=== PATIENT | female | born 1945 | race African-American/Black ===

== ENCOUNTER 2016-02-26 13:28 | Emergency (ER) | payer OTHER ==
[2016-02-26 13:39] VITALS: BP 105/76; PULSE 107; TEMP 98.6; BMI 24.3
--- NOTE | 2016-02-26 14:24 | PDOC ---
Attending Attestation - Resident Resident Name: Cathy Edge - ED Attending Attestation I have performed the following: I have examined & evaluated the patient, The case was reviewed & discussed with the resident, I agree w/resident's findings & plan, Exceptions are as noted - HPI HPI: 02/26/16 14:47 The patient is complaining of cough, subjective fever. - Physicial Exam PE: 02/26/16 14:47 Vitals noted - Medical Decision Making 02/26/16 14:47 The patient is well appearing and in no acute distress 02/26/16 15:22 Chest x-ray report noted: No acute cardiopulmonary disease Symptoms much improved after DuoNeb Clinical impression: Bronchitis Bronchospasm I discussed the physical exam findings, ancillary test results and final diagnoses with the patient. I answered all of the patient's questions. The patient was satisfied with the care received and felt comfortable with the discharge plan and treatment plan. The patient will call their primary care physician within 24 hours to arrange follow-up and will return to the Emergency Department with any new, persistent or worsening symptoms.
--- NOTE | 2016-02-26 14:47 | PDOC ---
[id number],Michael - Last Filed: 02/26/16 17:00> - General Chief Complaint: Cold Symptoms Stated Complaint: BAD COUGH Time Seen by Provider: 02/26/16 14:24 Past History - Past Medical History CVA: Yes Psychiatric Problems: Yes (depression) - Immunization History Immunization Up to Date: Yes - Psycho/Social/Smoking Cessation Hx Anxiety: Yes Suicidal Ideation: No Smoking Status: No Smoking History: Former smoker Have you smoked in the past 12 months: No Number of Cigarettes Smoked Daily: 0 If you are a former smoker, when did you quit?: 2008 Information on smoking cessation initiated: No Hx Alcohol Use: No Drug/Substance Use Hx: No (past) Substance Use Type: Alcohol <Cathy Edge - Last Filed: 02/26/16 14:47> <Tanja Stern - Last Filed: 02/26/16 16:09> <Chase Siegel - Last Filed: 02/26/16 17:00> - Past Medical History Allergies/Adverse Reactions: Allergies Allergy/AdvReac Type Severity Reaction Status Date / Time Penicillins Allergy Swelling Verified 02/26/16 13:34 Home Medications: Ambulatory Orders Sertraline HCl [Zoloft -] 100 mg PO DAILY 10/09/12 Tramadol HCl [Ultram] 50 mg PO TID 05/27/14 Apremilast [Otezla] 50 mg PO BID 11/15/14 Aspirin [ASA -] 81 mg PO DAILY 11/15/14 Albuterol Sulfate Inhaler - [Ventolin HFA Inhaler -] 1 - 2 inh PO QID #1 inhaler 11/17/14 *Physical Exam - Vital Signs Last Vital Signs Temp Pulse Resp BP Pulse Ox 98.6 F 107 H 20 105/76 98 02/26/16 13:35 02/26/16 13:35 02/26/16 13:35 02/26/16 13:35 02/26/16 13:35 <Cathy Edge - Last Filed: 02/26/16 14:47> - Vital Signs Last Vital Signs Temp Pulse Resp BP Pulse Ox 98.6 F 107 H 20 105/76 98 02/26/16 13:35 02/26/16 13:35 02/26/16 13:35 02/26/16 13:35 02/26/16 13:35 <[email or web address] - Last Filed: 02/26/16 16:09> - Vital Signs Last Vital Signs Temp Pulse Resp BP Pulse Ox 98.6 F 107 H 20 105/76 98 02/26/16 13:35 02/26/16 13:35 02/26/16 13:35 02/26/16 13:35 02/26/16 13:35 <Chase Siegel - Last Filed: 02/26/16 17:00> ED Treatment Course - LABORATORY CBC & Chemistry Diagram: 02/26/16 14:07 02/26/16 14:07 - RADIOLOGY Radiograph Interpretation: 02/26/16 16:08 Chest X-ray as reviewed by Dr. Maki reports no active disease in chest. - Medications Given in the ED: ED Medications Discontinued Medications Generic Name Dose Route Start Last Admin Trade Name Freq PRN Reason Stop Dose Admin Albuterol/Ipratropium 3 amp 02/26/16 14:50 02/26/16 15:51 Duoneb - NEB 02/26/16 14:51 3 amp ONCE ONE Administration Prednisone 60 mg 02/26/16 14:51 02/26/16 15:51 Deltasone - PO 02/26/16 14:52 60 mg ONCE ONE Administration <Tanja Stern - Last Filed: 02/26/16 16:09> - LABORATORY CBC & Chemistry Diagram: 02/26/16 14:07 02/26/16 14:07 - ADDITIONAL ORDERS Additional order review: 02/26/16 14:07 RBC 4.72 MCV 65.6 L MCHC 30.6 L RDW 20.9 H D MPV 9.3 Neutrophils % 36.5 L D Lymphocytes % 50.6 H Monocytes % 11.3 H Eosinophils % 1.0 Basophils % 0.6 - Medications Given in the ED: ED Medications Discontinued Medications Generic Name Dose Route Start Last Admin Trade Name Freq PRN Reason Stop Dose Admin Albuterol/Ipratropium 3 amp 02/26/16 14:50 02/26/16 15:51 Duoneb - NEB 02/26/16 14:51 3 amp ONCE ONE Administration Prednisone 60 mg 02/26/16 14:51 02/26/16 15:51 Deltasone - PO 02/26/16 14:52 60 mg ONCE ONE Administration <Chase Siegel - Last Filed: 02/26/16 17:00> *DC/Admit/Observation/Transfer <Cathy Edge - Last Filed: 02/26/16 14:47> - Attestations Scribe Attestion: 02/26/16 16:09 Documentation prepared by Tanja Stern, acting as medical coding technician for Chase Siegel MD/DO. <Tanja Stern - Last Filed: 02/26/16 16:09> <Chase Siegel - Last Filed: 02/26/16 17:00> Diagnosis at time of Disposition: Bronchitis - Referrals Referrals: Sebastian Puckett MD, MD [Primary Care Provider] -
[2016-02-26] MEDS ORDERED: ALBUTEROL SO4 2.5/IPRATROPIUM 0.5 INH SOL 3 ML VIAL.NEB. NEB ONE (14:50)
[2016-02-26] MEDS ORDERED: predniSONE 20 MG TABLET (UD) PO ONE (14:51)
[2016-02-26] MEDS ORDERED: SODIUM CHLORIDE 1,000 ML IV STA (14:51)
[2016-02-26] MEDS ORDERED: ALBUTEROL SO4 0.083% IH SOL 2.5 MG/3 ML VIAL.NEB. NEB ONE (15:48)
[2016-02-26] MEDS ORDERED: predniSONE 20 MG TABLET (UD) ONE (16:03)
[2016-02-26 16:10] LABS: BASOPHIL 0.6 % (0-2.0); MCH 20.1 pg (25.7-33.7); MCHC 30.6 g/dl (32.0-36.0); MEAN CELL VOLUME 65.6 fl (80-96); MEAN PLT VOLUME 9.3 fl (7.5-11.1); NEUTROPHILS 36.5 % (42.8-82.8); PLATELET COUNT 303 K/MM3 (134-434); RDW 20.9 % (11.6-15.6); WHITE BLOOD COUNT 7.6 K/mm3 (4.0-10.0)
[2016-02-26] MEDS ORDERED: OXYCODONE/APAP 5/325MG COMBO TABLET PO ONE (16:44)
[2016-02-26 17:02] LABS: ALBUMIN 3.8 g/dl (3.4-5.0); CALCIUM 9.8 mg/dL (8.5-10.1)
[2016-02-26 17:03] LABS: BILIRUBIN,TOTAL 0.5 mg/dL (0.2-1.0); TOT PROT 7.9 g/dl (6.4-8.2)
[2016-02-26 17:04] LABS: ANISOCYTOSIS 2+; HYPOCHROMIA 3+; MICROCYTOSIS 1+; PLATELET COMMENT2 NO CLUMPING NOTED; PLATELET ESTIMATE ADEQUATE (NORMAL); POLYCHROMASIA FEW; TARGET CELLS 1+
[2016-02-26] MEDS ORDERED: OXYCODONE/APAP 5/325MG COMBO TABLET ONE (17:15)
== END 2016-02-26 19:25 | disposition home or self-care (01) ==
LOC: JER 13:28
PROC: 3E0F7GC Introduction of Other Therapeutic Substance into Respiratory Tract, Via Natural or Artificial Opening (ICD-10-PCS; principal; 2016-02-26)
DX: J20.9 Acute bronchitis, unspecified (principal)
CPT/HCPCS: 36415; 71010-TC; 80053; 85025; 99283-25

== ENCOUNTER 2016-03-01 15:43 | Emergency (ER) | payer OTHER ==
[2016-03-01 15:51] VITALS: BMI 24.3
[2016-03-01] MEDS ORDERED: ALBUTEROL SO4 0.083% IH SOL 2.5 MG/3 ML VIAL.NEB. NEB ONE ×2 (17:42→18:52)
[2016-03-01 17:55] LABS: BASOPHIL 0.6 % (0-2.0); EOSINOPHIL 0.7 % (0-4.5); MCHC 29.8 g/dl (32.0-36.0); MEAN CELL VOLUME 66.5 fl (80-96); MEAN PLT VOLUME 9.7 fl (7.5-11.1); NEUTROPHILS 50.1 % (42.8-82.8); PLATELET COUNT 373 K/MM3 (134-434); RDW 20.8 % (11.6-15.6); WHITE BLOOD COUNT 12.1 K/mm3 (4.0-10.0)
[2016-03-01 17:57] LABS: URINE APPEARANCE CLEAR; URINE BILIRUBIN NEGATIVE (NEGATIVE); URINE BLOOD NEGATIVE (NEGATIVE); URINE COLOR YELLOW; URINE GLUCOSE (UA) NEGATIVE (NEGATIVE); URINE KETONE NEGATIVE (NEGATIVE); URINE LEUK ESTERASE NEGATIVE (NEGATIVE); URINE NITRITE NEGATIVE (NEGATIVE); URINE PROTEIN NEGATIVE (NEGATIVE); URINE UROBILINOGEN NEGATIVE E.U./dl (0.2-1.0)
[2016-03-01 17:59] LABS: MCH 19.9 pg (25.7-33.7)
[2016-03-01 18:07] LABS: INR 1.14 (0.82-1.09); PROTHROMBIN TIME (PATIENT) 12.6 SEC (9.98-11.88)
[2016-03-01 18:10] LABS: ACTIVATED PTT 29.9 SECONDS (26.9-34.4)
[2016-03-01 18:27] LABS: PLATELET ESTIMATE ADEQUATE (NORMAL)
[2016-03-01 18:28] LABS: ANISOCYTOSIS 2+; HYPOCHROMIA 3+; MICROCYTOSIS 1+; PLATELET COMMENT2 NO CLOTTING DETECTED; POLYCHROMASIA 1+; TARGET CELLS 1+
[2016-03-01 18:29] LABS: ALBUMIN 3.6 g/dl (3.4-5.0); ANION GAP 8 (8-16); CALCIUM 9.3 mg/dL (8.5-10.1); CO2 27 mmol/L (21-32); GLUCOSE,RANDOM 77 mg/dL (74-106); SGPT/ALT 16 U/L (12-78)
[2016-03-01 18:34] LABS: ALK PHOS 115 U/L (45-117); BILIRUBIN,TOTAL 0.4 mg/dL (0.2-1.0); CREATININE 0.9 mg/dL (0.55-1.02); SGOT/AST 12 U/L (15-37); TOT PROT 7.5 g/dl (6.4-8.2); TROPONIN I < 0.02 ng/ml (0.00-0.05)
--- NOTE | 2016-03-01 18:38 | PDOC ---
History of Present Illness - General History Source: Patient, Old Records Exam Limitations: No Limitations - History of Present Illness Initial Comments: 03/01/16 18:53 The patient is a 70 year old female, with a significant past medical history of anemia, who presents to the emergency department with a persistent cough and associated wheezing. The patient reports that she has been sick since 02/20/2016 and most recently visited this ED on 02/26/2016 with similar symptoms. On 2016 while in the ED, the patient had a chest x-ray and bloodwork done, with unremarkable findings. Since then, she has completed a course of doxycycline and was started on prednisone. She returns to the ED today because her cough persists and she doesn't feel any better despite taking her medications. The patient denies fever, chills or chest pain. Allergies: Penicillins Past Surgical History: None reported. Social History: Former smoker (quit in 2008). Reports past alcohol and drug use . PCP: Dr. Puckett <Renee Moore - Last Filed: 03/01/16 19:05> - General History Source: Patient Exam Limitations: No Limitations <Fracisco Mccoy - Last Filed: 03/01/16 19:21> - General Chief Complaint: Shortness of Breath Stated Complaint: SOB, FLU SYMPTONS Time Seen by Provider: 03/01/16 17:25 Past History <Renee Moore - Last Filed: 03/01/16 19:05> - Past Medical History CVA: Yes Psychiatric Problems: Yes (depression) - Immunization History Immunization Up to Date: Yes - Psycho/Social/Smoking Cessation Hx Anxiety: Yes Suicidal Ideation: No Smoking Status: No Smoking History: Former smoker Have you smoked in the past 12 months: No Number of Cigarettes Smoked Daily: 0 If you are a former smoker, when did you quit?: 2008 Information on smoking cessation initiated: No Hx Alcohol Use: Yes (hx of alcohol) Drug/Substance Use Hx: Yes (hx of stacey,crack) Substance Use Type: Alcohol <Fracisco Mccoy - Last Filed: 03/01/16 19:21> - Past Medical History Allergies/Adverse Reactions: Allergies Allergy/AdvReac Type Severity Reaction Status Date / Time Penicillins Allergy Swelling Verified 02/26/16 13:34 Home Medications: Ambulatory Orders Sertraline HCl [Zoloft -] 100 mg PO DAILY 08/26/13 Tramadol HCl [Ultram] 50 mg PO TID 05/27/14 Apremilast [Otezla] 50 mg PO BID 11/15/14 Aspirin [ASA -] 81 mg PO DAILY 11/15/14 Albuterol Sulfate Inhaler - [Ventolin HFA Inhaler -] 1 - 2 inh PO QID #1 inhaler 11/17/14 Prednisone [Deltasone -] 40 mg PO DAILY #4 tablet 02/26/16 Albuterol Sulfate Inhaler - [Ventolin HFA Inhaler -] 1 - 2 inh PO Q4H PRN #1 inhaler 03/01/16 Review of Systems - Review of Systems Able to Perform ROS?: Yes Comments:: 03/01/16 18:49 GENERAL/CONSTITUTIONAL: No fever or chills. No weakness. HEAD, EYES, EARS, NOSE AND THROAT: No change in vision. No ear pain or discharge. No sore throat. CARDIOVASCULAR: No chest pain or shortness of breath. RESPIRATORY: +Cough, wheezing. No hemoptysis. GASTROINTESTINAL: No nausea, vomiting, diarrhea or constipation. GENITOURINARY: No dysuria, frequency, or change in urination. MUSCULOSKELETAL: No joint or muscle swelling or pain. No neck or back pain. SKIN: No rash. NEUROLOGIC: No headache, vertigo, loss of consciousness, or change in strength/ sensation. ENDOCRINE: No increased thirst. No abnormal weight change. HEMATOLOGIC/LYMPHATIC: No anemia, easy bleeding, or history of blood clots. ALLERGIC/IMMUNOLOGIC: No hives or skin allergy. <Renee Moore - Last Filed: 03/01/16 19:05> *Physical Exam - Vital Signs Last Vital Signs Temp Pulse Resp BP Pulse Ox 98.5 F 81 18 119/80 100 03/01/16 15:47 03/01/16 15:47 03/01/16 15:47 03/01/16 15:47 03/01/16 16:40 - Physical Exam Comments: 03/01/16 18:43 GENERAL: Awake, alert, and fully oriented, in no acute distress. HEAD: No signs of trauma. EYES: PERRLA, EOMI, sclera anicteric, conjunctiva clear. ENT: Auricles normal inspection, hearing grossly normal, nares patent, oropharynx clear without exudates. Moist mucosa. NECK: Normal ROM, supple, no lymphadenopathy, JVD, or masses. LUNGS: Frequent coughing with intermittent wheezing. Breath sounds equal. No crackles. HEART: Regular rate and rhythm, normal S1 and S2, no murmurs, rubs or gallops. ABDOMEN: Soft, nontender, normoactive bowel sounds. No guarding, no rebound. No masses. EXTREMITIES: Normal range of motion, no edema. No clubbing or cyanosis. No cords , erythema, or tenderness. NEUROLOGICAL: Cranial nerves II through XII grossly intact. Normal speech, normal gait. SKIN: Warm, dry, normal turgor, no rashes or lesions noted. <CrossRenee Posada - Last Filed: 03/01/16 19:05> - Vital Signs Last Vital Signs Temp Pulse Resp BP Pulse Ox 98.5 F 81 18 119/80 100 03/01/16 15:47 03/01/16 15:47 03/01/16 15:47 03/01/16 15:47 03/01/16 16:40 <Fracisco Mccoy - Last Filed: 03/01/16 19:21> Heart Score/ECG Review #1 ECG reviewed & interpreted by me at: 17:50 03/01/16 18:38 NSR 70, left axis deviation, no std/fernanda, Q wave V1, QTC 440 msec <Fracisco Mccoy - Last Filed: 03/01/16 19:21> ED Treatment Course - LABORATORY CBC & Chemistry Diagram: 03/01/16 17:45 03/01/16 17:45 - ADDITIONAL ORDERS Additional order review: Laboratory Results 03/01/16 03/01/16 03/01/16 17:45 17:45 17:45 INR 1.14 PTT (Actin FS) 29.9 Sodium 139 Potassium 4.0 Chloride 104 Carbon Dioxide 27 Anion Gap 8 BUN 13 Creatinine 0.9 Creat Clearance w eGFR > 60 Random Glucose 77 Calcium 9.3 Total Bilirubin 0.4 AST 12 L D ALT 16 Alkaline Phosphatase 115 Creatine Kinase 68 Troponin I < 0.02 B-Natriuretic Peptide 77.21 Total Protein 7.5 Albumin 3.6 Urine Color Yellow Urine Appearance Clear Urine pH 5.0 Ur Specific [place] 1.015 Urine Protein Negative Urine Glucose (UA) Negative Urine Ketones Negative Urine Blood Negative Urine Nitrite Negative Urine Bilirubin Negative Urine Urobilinogen Negative Ur Leukocyte Esterase Negative 03/01/16 17:45 RBC 4.50 MCV 66.5 L MCHC 29.8 L RDW 20.8 H MPV 9.7 Neutrophils % 50.1 D Lymphocytes % 41.0 H Monocytes % 7.6 Eosinophils % 0.7 Basophils % 0.6 - Medications Given in the ED: ED Medications Discontinued Medications Generic Name Dose Route Start Last Admin Trade Name Freq PRN Reason Stop Dose Admin Albuterol Sulfate 1 amp 03/01/16 17:42 03/01/16 18:17 Ventolin 0.083% Nebulizer Soln - NEB 03/01/16 17:43 1 amp ONCE ONE Administration <Renee Moore - Last Filed: 03/01/16 19:05> - LABORATORY CBC & Chemistry Diagram: 03/01/16 17:45 03/01/16 17:45 - ADDITIONAL ORDERS Additional order review: Laboratory Results 03/01/16 03/01/16 17:45 17:45 INR 1.14 PTT (Actin FS) 29.9 Urine Color Yellow Urine Appearance Clear Urine pH 5.0 Ur Specific [place] 1.015 Urine Protein Negative Urine Glucose (UA) Negative Urine Ketones Negative Urine Blood Negative Urine Nitrite Negative Urine Bilirubin Negative Urine Urobilinogen Negative Ur Leukocyte Esterase Negative 03/01/16 17:45 RBC 4.50 MCV 66.5 L MCHC 29.8 L RDW 20.8 H MPV 9.7 Neutrophils % 50.1 D Lymphocytes % 41.0 H Monocytes % 7.6 Eosinophils % 0.7 Basophils % 0.6 - RADIOLOGY Radiology Studies Ordered: Category Date Time Status CHEST X-RAY PORTABLE* [RAD] Stat Radiology 03/01/16 17:41 Ordered - Medications Given in the ED: ED Medications Discontinued Medications Generic Name Dose Route Start Last Admin Trade Name Freq PRN Reason Stop Dose Admin Albuterol Sulfate 1 amp 03/01/16 17:42 03/01/16 18:17 Ventolin 0.083% Nebulizer Soln - NEB 03/01/16 17:43 1 amp ONCE ONE Administration <Fracisco Mccoy - Last Filed: 03/01/16 19:21> Medical Decision Making - Medical Decision Making 03/01/16 18:54 Called patients PCP, Dr. Puckett at at 18:50. Awaiting callback. <Renee Moore - Last Filed: 03/01/16 19:05> - Medical Decision Making 03/01/16 18:36 A portion of this note was documented by scribe services under my direction. I have reviewed the details of the note, within reason, and agree with the documentation with the following case summary and management plan written by me. Patient treated in the ED. Nursing notes are reviewed and incorporated into the medical decision-making. Vital signs reviewed. Peripheral IV access obtained by the nurse, laboratory studies are drawn and sent, reviewed and interpreted by myself. Vital Signs Temp Pulse Resp BP Pulse Ox 98.5 F 81 18 119/80 100 03/01/16 15:47 03/01/16 15:47 03/01/16 15:47 03/01/16 15:47 03/01/16 16:40 70-year-old female with history of anemia presents to the emergency department for persistent upper respiratory cough. Patient reports that the coughing has been progressively worsening despite owing to her primary care physician as well as visiting the emergency department for days ago. The patient had completed a course of doxycycline. Has not reported feeling better. 4 days ago, patient is a the ED and had a chest x-ray and blood work performed. It demonstrated no acute findings. She was started on prednisone and completed but reports no improvement of symptoms. Patient reports intermittent wheezing and coughing despite taking the medications. Denies fevers or chills. Denies chest pain. The patient is personally coughing despite outpatient treatment. We'll initiate adult sepsis protocol and rule out pneumonia. We'll send influenza swab. We'll obtain a chest x-ray and labs. 03/01/16 19:00 CBC, BMP 03/01/16 17:45 03/01/16 17:45 CMP Sodium 139 mmol/L (136-145) 03/01/16 17:45 Potassium 4.0 mmol/L (3.5-5.1) 03/01/16 17:45 Chloride 104 mmol/L (98-107) 03/01/16 17:45 Carbon Dioxide 27 mmol/L (21-32) 03/01/16 17:45 Anion Gap 8 (8-16) 03/01/16 17:45 BUN 13 mg/dL (7-18) 03/01/16 17:45 Creatinine 0.9 mg/dL (0.55-1.02) 03/01/16 17:45 Creat Clearance w eGFR > 60 (>60) 03/01/16 17:45 Random Glucose 77 mg/dL (74-106) 03/01/16 17:45 Calcium 9.3 mg/dL (8.5-10.1) 03/01/16 17:45 Total Bilirubin 0.4 mg/dL (0.2-1.0) 03/01/16 17:45 AST 12 U/L (15-37) L D 03/01/16 17:45 ALT 16 U/L (12-78) 03/01/16 17:45 Alkaline Phosphatase 115 U/L (45-117) 03/01/16 17:45 Creatine Kinase 68 IU/L (26-192) 03/01/16 17:45 Troponin I < 0.02 ng/ml (0.00-0.05) 03/01/16 17:45 B-Natriuretic Peptide 77.21 pg/ml (5-125) 03/01/16 17:45 Total Protein 7.5 g/dl (6.4-8.2) 03/01/16 17:45 Albumin 3.6 g/dl (3.4-5.0) 03/01/16 17:45 Urine Test Results Urine Color Yellow 03/01/16 17:45 Urine Appearance Clear 03/01/16 17:45 Urine pH 5.0 (5.0-8.0) 03/01/16 17:45 Ur Specific [place] 1.015 (1.001-1.035) 03/01/16 17:45 Urine Protein Negative (NEGATIVE) 03/01/16 17:45 Urine Glucose (UA) Negative (NEGATIVE) 03/01/16 17:45 Urine Ketones Negative (NEGATIVE) 03/01/16 17:45 Urine Blood Negative (NEGATIVE) 03/01/16 17:45 Urine Nitrite Negative (NEGATIVE) 03/01/16 17:45 Urine Bilirubin Negative (NEGATIVE) 03/01/16 17:45 Ur Leukocyte Esterase Negative (NEGATIVE) 03/01/16 17:45 Labs reviewed. Hgb stable. WBC ~12, likely secondary to steroids. The patient does not appear toxic and overall appears well. I suspect that this is likely viral syndrome which may explain why the steroids and doxycycline did not work. I had explained the results to the patient but the patient is very anxious and nervous about being discharged. She requests that I talk to DR. Puckett prior to dispo. Dr. Puckett was paged. 03/01/16 19:[address] Puckett. He agrees that the patient can follow up with him as an outpatient. I discussed the physical exam findings, ancillary test results and final diagnoses with the patient. I answered all of the patient's questions. The patient was satisfied with the care received and felt comfortable with the discharge plan and treatment plan. The patient will call their primary care physician within 24 hours to arrange follow-up and will return to the Emergency Department with any new, persistant or worsening symptoms. <Fracisco Mccoy - Last Filed: 03/01/16 19:21> *DC/Admit/Observation/Transfer - Attestations Scribe Attestion: 03/01/16 18:43 Documentation prepared by Renee Moore, acting as medical office technology instructor for Fracisco Mccoy MD. <Renee Moore - Last Filed: 03/01/16 19:05> - Discharge Dispostion Admit: No <Fracisco Mccoy - Last Filed: 03/01/16 19:21> Diagnosis at time of Disposition: Bronchitis - Discharge Dispostion Disposition: HOME Condition at time of disposition: Stable - Prescriptions Prescriptions: Albuterol Sulfate Inhaler - [Ventolin HFA Inhaler -] 1 - 2 inh PO Q4H PRN #1 inhaler PRN Reason: Cough - Referrals Referrals: Sebastian Puckett MD, MD [Primary Care Provider] - - Patient Instructions Printed Discharge Instructions: DI for Acute Bronchitis, DI for Chronic Bronchitis Additional Instructions: Your workup demonstrates no acute findings. This type of bronchitis may take another week or two before it resolves. The coughing can be persistent and bothersome. However, at this time, please use 2 puffs of albuterol every 4 hours as needed for wheezing/coughing. Follow up with DR. Puckett.
[2016-03-01 19:14] VITALS: BP 120/71; PULSE 80; TEMP 98.3
--- NOTE | 2016-03-02 16:23 | EKG ---
Test Reason : Blood Pressure : / mmHG Vent. Rate : 070 BPM Atrial Rate : 070 BPM P-R Int : 180 ms QRS Dur : 076 ms QT Int : 408 ms P-R-T Axes : 060 -36 048 degrees QTc Int : 440 ms NORMAL SINUS RHYTHM LEFT AXIS DEVIATION MINIMAL VOLTAGE CRITERIA FOR LVH, MAY BE NORMAL VARIANT SEPTAL INFARCT , AGE UNDETERMINED ABNORMAL ECG WHEN COMPARED WITH ECG OF 17-NOV-2014 09:27, NO SIGNIFICANT CHANGE WAS FOUND Confirmed by DEV VELASQUEZ MD ([id number]) on 03/02/2016 4:22:50 PM Referred By: Confirmed By:DEV VELASQUEZ MD
== END 2016-03-01 19:32 | disposition home or self-care (01) ==
LOC: JER 15:43
PROC: 3E0F7GC Introduction of Other Therapeutic Substance into Respiratory Tract, Via Natural or Artificial Opening (ICD-10-PCS; principal; 2016-03-01)
DX: J20.9 Acute bronchitis, unspecified (principal); F32.9 Major depressive disorder, single episode, unspecified; Z86.73 Personal history of transient ischemic attack (TIA), and cerebral infarction without residual deficits
CPT/HCPCS: 36415; 71010-TC; 80053; 81003; 82550; 83605; 83880; 84484; 85025; 85610; 85730; 87040; 87086; 87804; 93005; 93010; 94640; 99283-25

== ENCOUNTER 2017-03-17 16:20 | Emergency (ER) | payer OTHER ==
--- NOTE | 2017-03-17 16:21 | PDOC ---
Rapid Medical Evaluation Medical Evaluation: Allergies Allergy/AdvReac Type Severity Reaction Status Date / Time Penicillins Allergy Swelling Verified 02/26/16 13:34 03/17/17 16:22 71 year old female with history of CVA, anxiety/depression, anemia, chronic back pain, former smoker, former crack/cocaine user who presents with nasal congestion/dry cough, and chest tightness x 3 days, worse since morning. Symptoms reminiscent of when she had pneumonia last year. V/s unremarkable. EKG CXR Cardiac labs Influenza swab -To Main ED for further evaluation
[2017-03-17 16:27] VITALS: BMI 24.6
[2017-03-17 17:04] LABS: BASO % 0.9 % (0-2.0); EOS % 1.3 % (0-4.5); HEMOGLOBIN 8.9 GM/dL (10.7-15.3); LYMPH % 37.2 % (8-40); MCH 21.6 pg (25.7-33.7); MCHC 31.7 g/dl (32.0-36.0); MEAN CELL VOLUME 68.2 fl (80-96); MONO % 8.4 % (3.8-10.2); NEUT % 52.2 % (42.8-82.8); PLATELET COUNT 392 K/MM3 (134-434); RBC 4.11 M/mm3 (3.60-5.2); RDW 18.8 % (11.6-15.6)
[2017-03-17 17:07] LABS: URINE APPEARANCE CLEAR; URINE BILIRUBIN NEGATIVE (NEGATIVE); URINE BLOOD NEGATIVE (NEGATIVE); URINE COLOR YELLOW; URINE GLUCOSE (UA) NEGATIVE (NEGATIVE); URINE KETONE NEGATIVE (NEGATIVE); URINE LEUK ESTERASE TRACE (NEGATIVE); URINE NITRITE NEGATIVE (NEGATIVE); URINE PROTEIN NEGATIVE (NEGATIVE)
[2017-03-17 17:15] LABS: EPI CELLS RARE /HPF (FEW); URINE MUCUS RARE
[2017-03-17 17:34] LABS: ALBUMIN 3.7 g/dl (3.4-5.0); ANION GAP 6 (8-16); BLOOD UREA NITROGEN 12 mg/dL (7-18); CALCIUM 8.9 mg/dL (8.5-10.1); CHLORIDE 106 mmol/L (98-107); CO2 26 mmol/L (21-32); CREATININE 0.8 mg/dL (0.55-1.02); GLUCOSE,RANDOM 81 mg/dL (74-106); SGOT/AST 13 U/L (15-37); SGPT/ALT 19 U/L (12-78); SODIUM 138 mmol/L (136-145)
[2017-03-17 17:38] LABS: ALK PHOS 118 U/L (45-117); BILIRUBIN,TOTAL 0.6 mg/dL (0.2-1.0); N-TERMINAL BNP 74.28 pg/ml (5-125); TOT PROT 7.6 g/dl (6.4-8.2)
--- NOTE | 2017-03-17 19:32 | PDOC ---
History of Present Illness - General Chief Complaint: Shortness of Breath Stated Complaint: COLD SYMPTOMS Time Seen by Provider: 03/17/17 19:26 History Source: Patient Exam Limitations: No Limitations - History of Present Illness Initial Comments: 03/17/17 22:36 Patient is a 71-year-old female past medical history of anemia, anxiety, back pain, who presents to the emergency department today complaining of chest tightness and shortness of breath. Patient states she has been feeling this way for approximately 3 days. She states the last time she felt this way she was diagnosed with pneumonia. She admits to a cough and shortness of breath on exertion. Denies fevers, chills, sore throat, body aches, chest pain, palpitations, nausea, vomiting and diarrhea. Past History - Travel Traveled outside of the country in the last 30 days: No Close contact w/someone who was outside of country & ill: No - Past Medical History Allergies/Adverse Reactions: Allergies Allergy/AdvReac Type Severity Reaction Status Date / Time Penicillins Allergy Swelling Verified 03/17/17 16:22 Home Medications: Ambulatory Orders Sertraline HCl [Zoloft -] 100 mg PO DAILY 10/09/12 Apremilast [Otezla] 50 mg PO BID 11/15/14 Aspirin [ASA -] 81 mg PO DAILY 11/15/14 Esomeprazole Magnesium 40 mg PO DAILY 03/17/17 Oxycodone HCl [Oxycodone HCl ER] 10 mg PO DAILY 03/17/17 CVA: Yes COPD: No Psychiatric Problems: Yes (depression) - Immunization History Immunization Up to Date: Yes - Suicide/Smoking/Psychosocial Hx Smoking Status: No Smoking History: Former smoker Have you smoked in the past 12 months: No Number of Cigarettes Smoked Daily: 0 If you are a former smoker, when did you quit?: 2008 Information on smoking cessation initiated: No Hx Alcohol Use: Yes (hx of alcohol) Drug/Substance Use Hx: Yes (hx of stacey,crack) Substance Use Type: Alcohol Review of Systems - Review of Systems Able to Perform ROS?: Yes Comments:: 03/17/17 22:38 CONSTITUTIONAL: Absent: fever, chills, diaphoresis, generalized weakness, malaise, loss of appetite HEENT: Absent: rhinorrhea, nasal congestion, throat pain, throat swelling, difficulty swallowing, mouth swelling, ear pain, eye pain, visual Changes CARDIOVASCULAR: Absent: chest pain, loss of consciousness, palpitations, irregular heart rate, peripheral edema RESPIRATORY: Present: cough, shortness of breath, dyspnea with exertion Absent: orthopnea, wheezing, stridor, hemoptysis GASTROINTESTINAL: Absent: abdominal pain, abdominal distension, nausea, vomiting, diarrhea, constipation, melena, hematochezia GENITOURINARY: Absent: dysuria, frequency, urgency, hesitancy, hematuria, flank pain, genital pain MUSCULOSKELETAL: Present: back pain Absent: myalgia, arthralgia, joint swelling SKIN: Absent: rash, itching, pallor HEMATOLOGIC/IMMUNOLOGIC: Absent: easy bleeding, easy bruising, lymphadenopathy, frequent infections ENDOCRINE: Absent: unexplained weight gain, unexplained weight loss, heat intolerance, cold intolerance NEUROLOGIC: Absent: headache, focal weakness or paresthesias, dizziness, unsteady gait, seizure, mental status changes, bladder or bowel incontinence PSYCHIATRIC: Absent: anxiety, depression, suicidal or homicidal ideation, hallucinations. Is the patient limited [place]ian proficient: No *Physical Exam - Vital Signs Last Vital Signs Temp Pulse Resp BP Pulse Ox 98.2 F 85 18 141/94 100 03/17/17 16:23 03/17/17 16:23 03/17/17 16:23 03/17/17 16:23 03/17/17 16:23 - Physical Exam Comments: 03/17/17 22:38 GENERAL: Well developed, well nourished. Awake and alertx3. No acute distress. Pt speaking in full sentences, however; gets winding during conversation while sitting. HEENT: Normocephalic, atraumatic. PERRLA, EOMI. No conjunctival pallor. Sclera are non- icteric. Moist mucous membranes. Oropharynx is clear. NECK: Supple. Full ROM. No JVD. Carotid pulses 2+ and symmetric, without bruits. No thyromegaly. No lymphadenopathy. CARDIOVASCULAR: Regular rate and rhythm. No murmurs, rubs, or gallops. Distal pulses are 2+ and symmetric. PULMONARY: No evidence of respiratory distress. Lungs clear to auscultation bilaterally. No wheezing, rales or rhonchi. ABDOMINAL: Soft. Non-tender. Non-distended. No rebound or guarding. No organomegaly. Normoactive bowel sounds. MUSCULOSKELETAL Normal range of motion at all joints. No bony deformities or tenderness. No CVA tenderness. EXTREMITIES: No cyanosis. No clubbing. No edema. No calf tenderness. SKIN: Warm and dry. Normal capillary refill. No rashes. No jaundice. NEUROLOGICAL: Alert, awake, appropriate. Cranial nerves 2-12 intact. No deficits to light touch and temperature in face, upper extremities and lower extremities. No motor deficits in the in face, upper extremities and lower extremities. Normoreflexic in the upper and lower extremities. Normal speech. Toes are down- going bilaterally. Gait is normal without ataxia. PSYCHIATRIC: Cooperative. Good eye contact. Appropriate mood and affect. ED Treatment Course - LABORATORY CBC & Chemistry Diagram: 03/17/17 16:51 03/17/17 16:51 - ADDITIONAL ORDERS Additional order review: Laboratory Results 03/17/17 03/17/17 03/17/17 16:58 16:51 16:51 PT with INR Cancelled INR Cancelled Sodium 138 Potassium 4.0 Chloride 106 Carbon Dioxide 26 Anion Gap 6 L BUN 12 Creatinine 0.8 Creat Clearance w eGFR > 60 Random Glucose 81 Calcium 8.9 Total Bilirubin 0.6 D AST 13 L ALT 19 Alkaline Phosphatase 118 H Creatine Kinase 153 Creatine Kinase Index 0.9 CK-MB (CK-2) 1.451 Troponin I < 0.02 B-Natriuretic Peptide 74.28 Total Protein 7.6 Albumin 3.7 Urine Color Yellow Urine Appearance Clear Urine pH 5.0 Ur Specific [place] 1.021 Urine Protein Negative Urine Glucose (UA) Negative Urine Ketones Negative Urine Blood Negative Urine Nitrite Negative Urine Bilirubin Negative Urine Urobilinogen 2.0 H Ur Leukocyte Esterase Trace Urine WBC (Auto) 1 Urine RBC (Auto) 1 Ur Epithelial Cells Rare Urine Mucus Rare 03/17/17 17:22 Influenza Types A,B Antigen (KEITH) - Final Nasopharyngeal Swab - Final 03/17/17 16:51 RBC 4.11 MCV 68.2 L MCHC 31.7 L RDW 18.8 H D MPV 9.0 Neutrophils % 52.2 Lymphocytes % 37.2 Monocytes % 8.4 Eosinophils % 1.3 Basophils % 0.9 Medical Decision Making - Medical Decision Making 03/17/17 23:01 Patient is a 71-year-old female past medical history of anemia, anxiety, back pain, who presents to the emergency department today with two days of chest tightness and shortness of breath.Given past medical history of pneumonia, will obtain chest x-ray basic labs and EKG at this time. We'll also obtain cardiac labs to rule out CHF. We'll give one DuoNeb treatment at this time. Less likely a viral etiology given lack of fever, congestion and other constitutional symptoms. Reevaluate 03/17/17 23:54 Lab work is relatively unremarkable at this time with the exception of the patient's hemoglobin level. Hemoglobin is currently 8.9. Patient's last visit hemoglobin was 11.2. Concern for possible symptomatic anemia at this time. Patient satting 100 on room air while at rest. EKG rate 78, normal sinus rhythm with sinus arrhythmia. Left anterior fascicular block. QTC 469. Nonspecific T-wave abnormality. LAFB is new compared to the last old EKG. Chest x-ray: Shows a nodule however no acute cardiopulmonary pathology. Nodule should be followed up as an outpatient. Explained chest x-ray findings to the patient. She understands that this needs follow-up and will tell her primary care doctor. Patient approached by self in the hallway approximately 100 feet from her room and she appeared to be short of breath. Given the hemoglobin drop concern for symptomatic anemia and will speak to felicia for observation. 03/18/17 00:39 Spoke with felicia. They came and evaluated the patient and believe that the patient's symptoms are due to her anxiety. Pt. appeared comfortable to them with clear lung sounds on exam. Pt also stated that she took one of her anxiety pills. Not recommending observation at this time. Will write a consult and recommend discharge. 03/18/17 01:01 Pt. discharged from the ED. Pt. does have follow up with her primary care doctor on Tuesday. She states she will keep the appointment. Gave the patient strict return precautions about difficulty breathing, shortness of breath, lightheadedness, dizziness. Pt. is comfortable with treatment plan. Understands all d/c instructions and all questions were answered at this time. *DC/Admit/Observation/Transfer Diagnosis at time of Disposition: Symptomatic anemia, Left anterior fascicular block, Anxiety - Discharge Dispostion Disposition: HOME Condition at time of disposition: Stable Admit: No - Referrals Referrals: Sebastian Puckett MD, MD [Primary Care Provider] - - Patient Instructions Printed Discharge Instructions: DI for Anxiety -- Adult, DI for Shortness of Breath Additional Instructions: Her lab work today showed a low hemoglobin level at 8.9. Your chest x-ray also showed a nodule. It is recommended that she have an outpatient CAT scan of your chest follow the nodule. Please follow this up with your primary care doctor on Tuesday. Please take all your medications as prescribed including her anxiety medication. Her flu test was negative. Please follow-up with her primary care doctor on Tuesday as scheduled. Return to the emergency department if you have difficulty breathing, shortness of breath, fevers, weakness, or any changes in your symptoms. - Post Discharge Activity
[2017-03-17 19:44] LABS: PLATELET ESTIMATE ADEQUATE
[2017-03-17 19:46] LABS: ADD RBC MORPHOLOGY YES; ANISOCYTOSIS 1+
[2017-03-17 19:47] LABS: TARGET CELLS 2+
[2017-03-17] MEDS ORDERED: ALBUTEROL SO4 2.5/IPRATROPIUM 0.5 INH SOL 3 ML VIAL.NEB. NEB ONE ×2 (19:49→19:54)
--- NOTE | 2017-03-17 20:06 | PDOC ---
*Physical Exam - Vital Signs Last Vital Signs Temp Pulse Resp BP Pulse Ox 98.2 F 85 18 141/94 100 03/17/17 16:23 03/17/17 16:23 03/17/17 16:23 03/17/17 16:23 03/17/17 16:23 ED Treatment Course - LABORATORY CBC & Chemistry Diagram: 03/17/17 16:51 03/17/17 16:51 - ADDITIONAL ORDERS Additional order review: Laboratory Results 03/17/17 03/17/17 03/17/17 16:58 16:51 16:51 PT with INR Cancelled INR Cancelled Sodium 138 Potassium 4.0 Chloride 106 Carbon Dioxide 26 Anion Gap 6 L BUN 12 Creatinine 0.8 Creat Clearance w eGFR > 60 Random Glucose 81 Calcium 8.9 Total Bilirubin 0.6 D AST 13 L ALT 19 Alkaline Phosphatase 118 H Creatine Kinase 153 Creatine Kinase Index 0.9 CK-MB (CK-2) 1.451 Troponin I < 0.02 B-Natriuretic Peptide 74.28 Total Protein 7.6 Albumin 3.7 Urine Color Yellow Urine Appearance Clear Urine pH 5.0 Ur Specific [place] 1.021 Urine Protein Negative Urine Glucose (UA) Negative Urine Ketones Negative Urine Blood Negative Urine Nitrite Negative Urine Bilirubin Negative Urine Urobilinogen 2.0 H Ur Leukocyte Esterase Trace Urine WBC (Auto) 1 Urine RBC (Auto) 1 Ur Epithelial Cells Rare Urine Mucus Rare 03/17/17 17:22 Influenza Types A,B Antigen (KEITH) - Final Nasopharyngeal Swab - Final 03/17/17 16:51 RBC 4.11 MCV 68.2 L MCHC 31.7 L RDW 18.8 H D MPV 9.0 Neutrophils % 52.2 Lymphocytes % 37.2 Monocytes % 8.4 Eosinophils % 1.3 Basophils % 0.9 - Medications Given in the ED: ED Medications Discontinued Medications Generic Name Dose Route Start Last Admin Trade Name Freq PRN Reason Stop Dose Admin Albuterol/Ipratropium 1 amp 03/17/17 19:49 03/17/17 19:58 Duoneb - NEB 03/17/17 19:50 1 amp ONCE ONE Administration Medical Decision Making - Medical Decision Making 03/17/17 20:06 Pt seen by the Advanced Practice Provider under my direct supervision Ancillary studies reviewed I agree with plan as outlined by the Advanced Practice Provider JORGE Babcock *DC/Admit/Observation/Transfer - Referrals Referrals: Sebastian Puckett MD, MD [Primary Care Provider] - - Patient Instructions - Post Discharge Activity
[2017-03-18 01:12] VITALS: BP 138/78; PULSE 89; TEMP 98.5
--- NOTE | 2017-03-18 01:14 | CONSULT ---
Consultation: REQUESTING PROVIDER: CONSULT REQUEST: We have been asked to medically evaluate this patient for SOB. HISTORY OF PRESENT ILLNESS: Pt is a 71 y/o F with H anxiety attacks, depression, chronic anemia, chronic back pain who came to ED with complaint of SOB. Pt states that she was talking to her son on the phone, and felt short of breath. He felt she sounded short of breath and was concerned. He told her if she did not go to ED, he would call her an ambulance. Pt admits she has been short of breath on numerous occasions but has not had a panick attack in 4 years. She states she is able to walk to her local post office and back home but must go slowly because of leg pain. She denies SOB while walking. Pt states she takes Diazpam twice daily but did not take her morning dose today. She took one pill, which she was carrying with her in the ED prior to this interview. She states that at this time, she is no longer short of breath and feels fine. Pt states she will not see a psychiatrist as she has seen them before and felt it did not help her. She has an appointment with her PMH on . REVIEW OF SYSTEMS: CONSTITUTIONAL: Absent: fever, chills, diaphoresis, generalized weakness, HEENT: Absent: rhinorrhea, nasal congestion, throat pain, difficulty swallowing, visual changes CARDIOVASCULAR: Absent: chest pain, syncope, palpitations, irregular heart rate, peripheral edema RESPIRATORY: shortness of breath Absent: cough,, dyspnea with exertion, orthopnea, wheezing, stridor, hemoptysis GASTROINTESTINAL: Absent: abdominal pain, abdominal distension, nausea, vomiting, diarrhea, GENITOURINARY: Absent: dysuria, frequency MUSCULOSKELETAL: back pain, R leg pain. chronic Absent: myalgia, joint swelling, , neck pain SKIN: psoriasis with erruptions in the past. currently stable Absent: itching, pallor PHYSICAL EXAMINATION Vital Signs - 24 hr 03/17/17 03/17/17 16:23 23:15 Temperature 98.2 F Pulse Rate 85 Respiratory 18 Rate Blood Pressure 141/94 O2 Sat by Pulse 100 98 Oximetry (%) GENERAL: Awake, alert, and fully oriented, in no acute distress. HEAD: Normal with no signs of trauma. EYES: Pupils equal, round and reactive to light, extraocular movements intact, sclera anicteric, conjunctiva clear. No lid lag. EARS, NOSE, THROAT: oropharynx clear without exudates. Moist mucous membranes. NECK: Normal range of motion, supple without lymphadenopathy, JVD, or masses. LUNGS: Breath sounds equal, clear to auscultation bilaterally. No wheezes, and no crackles. No accessory muscle use. HEART: Regular rate and rhythm, normal S1 and S2 without murmur, rub or gallop. ABDOMEN: Soft, nontender, not distended, normoactive bowel sounds, no guarding, no rebound, no masses. No hepatomegaly or splenomegaly. MUSCULOSKELETAL: Normal range of motion at all joints. No bony deformities or tenderness. No CVA tenderness. UPPER EXTREMITIES: 2+ pulses, warm, well-perfused. No cyanosis. No clubbing. Cap refill <2 seconds. No peripheral edema. LOWER EXTREMITIES: 2+ pulses, warm, well-perfused. No calf tenderness. No peripheral edema. NEUROLOGICAL: Cranial nerves II-XII intact. Normal speech. PSYCHIATRIC: Cooperative. Good eye contact. Appropriate mood and affect. SKIN: Warm, dry, normal turgor, no rashes or lesions noted. Laboratory Results - last 24 hr 03/17/17 03/17/17 03/17/17 16:51 16:51 16:51 WBC 8.0 RBC 4.11 Hgb 8.9 L D Hct 28.0 L D MCV 68.2 L MCH 21.6 L MCHC 31.7 L RDW 18.8 H D Plt Count 392 MPV 9.0 Neutrophils % 52.2 Lymphocytes % 37.2 Monocytes % 8.4 Eosinophils % 1.3 Basophils % 0.9 Hypochromia 2+ Platelet Estimate Adequate Anisocytosis 1+ Microcytosis 1+ Target Cells 2+ PT with INR Cancelled INR Cancelled Sodium 138 Potassium 4.0 Chloride 106 Carbon Dioxide 26 Anion Gap 6 L BUN 12 Creatinine 0.8 Creat Clearance w eGFR > 60 Random Glucose 81 Calcium 8.9 Total Bilirubin 0.6 D AST 13 L ALT 19 Alkaline Phosphatase 118 H Creatine Kinase 153 Creatine Kinase Index 0.9 CK-MB (CK-2) 1.451 Troponin I < 0.02 B-Natriuretic Peptide 74.28 Total Protein 7.6 Albumin 3.7 Urine Color Urine Appearance Urine pH Ur Specific [place] Urine Protein Urine Glucose (UA) Urine Ketones Urine Blood Urine Nitrite Urine Bilirubin Urine Urobilinogen Ur Leukocyte Esterase Urine WBC (Auto) Urine RBC (Auto) Ur Epithelial Cells Urine Mucus 03/17/17 16:58 WBC RBC Hgb Hct MCV MCH MCHC RDW Plt Count MPV Neutrophils % Lymphocytes % Monocytes % Eosinophils % Basophils % Hypochromia Platelet Estimate Anisocytosis Microcytosis Target Cells PT with INR INR Sodium Potassium Chloride Carbon Dioxide Anion Gap BUN Creatinine Creat Clearance w eGFR Random Glucose Calcium Total Bilirubin AST ALT Alkaline Phosphatase Creatine Kinase Creatine Kinase Index CK-MB (CK-2) Troponin I B-Natriuretic Peptide Total Protein Albumin Urine Color Yellow Urine Appearance Clear Urine pH 5.0 Ur Specific [place] 1.021 Urine Protein Negative Urine Glucose (UA) Negative Urine Ketones Negative Urine Blood Negative Urine Nitrite Negative Urine Bilirubin Negative Urine Urobilinogen 2.0 H Ur Leukocyte Esterase Trace Urine WBC (Auto) 1 Urine RBC (Auto) 1 Ur Epithelial Cells Rare Urine Mucus Rare Active Medications Generic Name Dose Route Start Last Admin Trade Name Freq PRN Reason Stop Dose Admin Aspirin 81 mg 03/18/17 10:00 Asa - PO DAILY VERONIQUE Non-Formulary Medication 50 mg 03/18/17 10:00 Apremilast [Otezla] PO BID VERONIQUE Oxycodone HCl 10 mg 03/18/17 10:00 Oxycontin - PO DAILY VERONIQUE Pantoprazole Sodium 40 mg 03/18/17 10:00 Protonix - PO DAILY VERONIQUE Sertraline HCl 100 mg 03/18/17 10:00 Zoloft - PO DAILY VERONIQUE ASSESSMENT/PLAN: Pt is a 71 y/o F with PMH panic attacks who presents with SOB. Pt was talking to son on the phone when she became short of breath. In ED, vitals wnl with O2 sat 100% on RA and resolution of symptoms after pt took her diazepam. #Anxiety -pt very likely was anxious -workup in ED was negative. -labs significant only for her chronic microcytic, hypochromic anemia. Trop negative. -CXR revealed incidental nodular opoacities which were mentioned to pt. Pt adamantly refused further workup and agreed to discuss with her PMD. -EKG unchanged compared to EKG from Feb 2016. Both show LAFB -symptoms resolved after diazepam (home med). -Pt advised to follow up closely with PMD Dispo: We will continue to follow the patient. Thank you for this consultative opportunity. <Ronald Chappell - Last Filed: 03/18/17 00:58> Consultation: ATTENDING PHYSICIAN STATEMENT I saw and evaluated the patient. I reviewed the resident's note and discussed the case with the resident. I agree with the resident's findings and plan as documented. Discussed radiology results with patient . She understands that considering prior history of smoking these findings need to be followed closely. She refuses to follow up regarding this matter . She has a follow up with her PMD on tuesday <Karen Wheeler - Last Filed: 03/18/17 01:34> Visit type - Emergency Visit Emergency Visit: Yes Care time: The patient presented to the Emergency Department on the above date and was hospitalized for further evaluation of their emergent condition. - New Patient This patient is new to me today: Yes Date on this admission: 03/18/17 - Critical Care Critical Care patient: No <Ronald Chappell - Last Filed: 03/18/17 00:58>
[2017-03-18] MEDS ORDERED: PANTOPRAZOLE 40 MG TABLET (FP) PO SCH (10:00)
[2017-03-18] MEDS ORDERED: ASPIRIN 81 MG CHEWABLE TABLETS PO SCH (10:00)
[2017-03-18] MEDS ORDERED: oxyCODONE HCL 10 MG SUSTAINED ACTING TABLET PO SCH (10:00)
[2017-03-18] MEDS ORDERED: APREMILAST PO SCH (10:00)
[2017-03-18] MEDS ORDERED: SERTRALINE HCL 50 MG TABLET (FP) PO SCH (10:00)
--- NOTE | 2017-03-18 10:03 | EKG ---
Test Reason : Blood Pressure : / mmHG Vent. Rate : 078 BPM Atrial Rate : 078 BPM P-R Int : 200 ms QRS Dur : 082 ms QT Int : 412 ms P-R-T Axes : 054 -46 041 degrees QTc Int : 469 ms NORMAL SINUS RHYTHM WITH SINUS ARRHYTHMIA LEFT ANTERIOR FASCICULAR BLOCK MODERATE VOLTAGE CRITERIA FOR LVH, MAY BE NORMAL VARIANT NONSPECIFIC T WAVE ABNORMALITY ABNORMAL ECG Confirmed by BUDDY HAYNES MD ([id number]) on 03/18/2017 10:03:36 AM Referred By: Confirmed By:BUDDY HAYNES MD
== END 2017-03-18 01:12 | disposition home or self-care (01) ==
LOC: JER 16:20 → JERBED 23:07 → UNDOADMOB 23:07 → JER 03-18 01:12
PROC: 3E0F7GC Introduction of Other Therapeutic Substance into Respiratory Tract, Via Natural or Artificial Opening (ICD-10-PCS; principal; 2017-03-17)
DX: D64.89 Other specified anemias (principal); I44.4 Left anterior fascicular block; F41.9 Anxiety disorder, unspecified; Z87.891 Personal history of nicotine dependence; Z86.73 Personal history of transient ischemic attack (TIA), and cerebral infarction without residual deficits
CPT/HCPCS: 36415; 71046-TC; 80053; 81003; 81015; 82550; 82553; 83880; 84484; 85025; 87804; 93005; 93010; 99285-25

== ENCOUNTER 2018-01-12 10:04 | Inpatient (IN) | payer OTHER ==
--- NOTE | 2018-01-12 11:13 | PDOC ---
History of Present Illness - General History Source: Patient Exam Limitations: No Limitations - History of Present Illness Initial Comments: 01/12/18 11:35 The patient is a 72-year-old female, with a significant past medical history of psoriatic arthritis, anxiety attacks, depression, chronic anemia, chronic back pain, who presents to the ED with 2 weeks of progressively worsening shortness of breath. Patient states that initially she felt short of breath when ambulating but she is now experiencing the symptoms at rest. She states that her symptoms are similar to her previous episodes of pneumonia. She denies any recent illnesses but she does report that she has traveled by car to [place] multiple times within the last 3 months. The patient denies any fever, chills, nausea, vomiting, diarrhea, or abdominal pain. Denies any chest pain, palpitations, headache, or dizziness. Allergies: Penicillins Surgical History: None reported. Social History: Former smoker (Quit 10 years ago; 42 year pack history). PCP: Dr. Puckett <Aide Watkins - Last Filed: 01/12/18 11:34> <Dexter Galeas - Last Filed: 01/12/18 14:19> - General Chief Complaint: Shortness of Breath Stated Complaint: SOB Time Seen by Provider: 01/12/18 10:51 Past History <Aide Watkins - Last Filed: 01/12/18 11:34> - Past Medical History CVA: Yes COPD: No Psychiatric Problems: Yes (depression) - Immunization History Immunization Up to Date: Yes - Suicide/Smoking/Psychosocial Hx Smoking Status: No Smoking History: Never smoked Have you smoked in the past 12 months: No Number of Cigarettes Smoked Daily: 0 If you are a former smoker, when did you quit?: 2008 Information on smoking cessation initiated: No Hx Alcohol Use: No Drug/Substance Use Hx: No Substance Use Type: Alcohol <Dexter Galeas - Last Filed: 01/12/18 14:19> - Past Medical History Allergies/Adverse Reactions: Allergies Allergy/AdvReac Type Severity Reaction Status Date / Time Penicillins Allergy Swelling Verified 01/12/18 10:08 Home Medications: Ambulatory Orders Sertraline HCl [Zoloft -] 100 mg PO DAILY 10/09/12 Apremilast [Otezla] 50 mg PO BID 11/15/14 Aspirin [ASA -] 81 mg PO DAILY 11/15/14 Esomeprazole Magnesium 40 mg PO DAILY 03/17/17 Oxycodone HCl [Oxycodone HCl ER] 10 mg PO DAILY 03/17/17 Review of Systems - Review of Systems Able to Perform ROS?: Yes Comments:: 01/12/18 11:35 GENERAL: The patient is awake, alert, and fully oriented, in no acute distress. Patient is speaking full sentences and is joking around and smiling. HEAD: Normal with no signs of trauma. EYES: Pupils equal, round and reactive to light, extraocular movements intact, sclera anicteric, conjunctiva clear with no pallor. ENT: Ears normal, nares patent, oropharynx clear without exudates. Moist mucous membranes. NECK: Normal range of motion, supple without lymphadenopathy, JVD, or masses. LUNGS: Breath sounds equal, clear to auscultation bilaterally. No tachypnea. No focally increased breath sounds. No wheeze/crackles. HEART: Regular rate and rhythm, normal S1 and S2 without murmur or rub. ABDOMEN: Soft/nontender/nondistended. BS wnl. No guarding or rebound. No palpable masses. No hepatosplenomegaly. EXTREMITIES: Normal range of motion, no edema. No calf tenderness. No clubbing or cyanosis. No cords, erythema. NEUROLOGICAL: Cranial nerves II through XII grossly intact. Normal speech. PSYCH: Normal mood, normal affect. SKIN: Warm, Dry, normal turgor, no rashes or lesions noted. <Aide Watkins - Last Filed: 01/12/18 11:34> - Review of Systems Constitutional: Yes: Night Sweats (chronic for months). No: Chills, Fever HEENTM: No: Recent change in vision Respiratory: Yes: Shortness of Breath. No: Cough Cardiac (ROS): No: Chest Pain, Edema, Lightheadedness, Palpitations, Syncope ABD/GI: No: Diarrhea, Nausea, Vomiting : No: Dysuria Neurological: No: Headache All Other Systems: Reviewed and Negative <Dexter Galeas - Last Filed: 01/12/18 14:19> *Physical Exam - Vital Signs Last Vital Signs Temp Pulse Resp BP Pulse Ox 97.8 F 78 18 132/66 100 01/12/18 10:09 01/12/18 10:09 01/12/18 10:09 01/12/18 10:09 01/12/18 10:09 <Aide Watkins - Last Filed: 01/12/18 11:34> - Vital Signs Last Vital Signs Temp Pulse Resp BP Pulse Ox 97.8 F 78 18 132/66 100 01/12/18 10:09 01/12/18 10:09 01/12/18 10:09 01/12/18 10:09 01/12/18 10:09 <Dexter Galeas - Last Filed: 01/12/18 14:19> Moderate Sedation - Procedure Monitoring Vital Signs: Procedure Monitoring Vital Signs Temperature 97.8 F 01/12/18 10:09 Pulse Rate 78 01/12/18 10:09 Respiratory Rate 18 01/12/18 10:09 Blood Pressure 132/66 01/12/18 10:09 O2 Sat by Pulse Oximetry (%) 100 01/12/18 10:09 <Aide Watkins - Last Filed: 01/12/18 11:34> - Procedure Monitoring Vital Signs: Procedure Monitoring Vital Signs Temperature 97.8 F 01/12/18 10:09 Pulse Rate 78 01/12/18 10:09 Respiratory Rate 18 01/12/18 10:09 Blood Pressure 132/66 01/12/18 10:09 O2 Sat by Pulse Oximetry (%) 100 01/12/18 10:09 <Dexter Galeas - Last Filed: 01/12/18 14:19> Heart Score/ECG Review #1 ECG reviewed & interpreted by me at: 10:14 General ECG Interpretation: Sinus Rhythm, Normal Rate (78), Normal Intervals ( LVH, qtc 426), No acute ischemic changes (septal q waves v1v2) Compared to previous ECG there are: No significant change (03/17/17) <Dexter Galeas - Last Filed: 01/12/18 14:19> ED Treatment Course - LABORATORY CBC & Chemistry Diagram: 01/12/18 11:30 01/12/18 11:30 <Aide Watkins - Last Filed: 01/12/18 11:34> - LABORATORY CBC & Chemistry Diagram: 01/12/18 11:30 01/12/18 11:30 <Dexter Galeas - Last Filed: 01/12/18 14:19> Medical Decision Making - Medical Decision Making 01/12/18 11:29 72-year-old female with significant smoking history but quit 10 years ago, anxiety, psoriatic arthritis on Remicade presents with progressive shortness of breath over the last 2 weeks. Patient notes initial dyspnea on exertion, and now at rest. No associated fever/chills/cough/pleuritic pain/palpitations, states this feels exactly like past pneumonia so she presents for evaluation. Night sweats for unclear timeframe, seem to precede the symptoms, no measured fevers or chills. Does not have a diagnosis of chronic bronchitis or emphysema, does have anemia managed with iron. Of note, patient has a sick sister in [place], she has visited her multiple times over the last 3 months and has traveled by car. Vitals as noted and normal including 100% O2 sat on room air, normal respiratory rate, and afebrile L appearing, joking and smiling, speaking full sentences Heart is regular, lungs are clear without focally decreased breath sounds No leg swelling or calf tenderness 72-year-old female with progressive painless shortness of breath over the last 2 weeks without other localizing infectious symptoms such as fever/chills/ cough. Patient identifies her symptoms with past episodes of pneumonia, rule out COPD/emphysema exacerbation, low risk for PE given her recent travel but otherwise normal vital signs. Rule out symptomatic anemia. Labs including d-dimer and troponin EKG, chest x-ray Reassess 01/12/18 13:12 Hgb 6.7, previously 8 in october. chem wnl, including trop. CXR pending. will begin t+c and transfuse prbc. proceed with admission. 01/12/18 14:[address] admission [address] Witt (covering Lyo), signout given to Dr. Livingston. <Dexter Galeas - Last Filed: 01/12/18 14:19> *DC/Admit/Observation/Transfer - Attestations Scribe Attestion: 01/12/18 11:38 Documentation prepared by Aide Watkins, acting as medical biller for Dexter Galeas MD. <Aide Watkins - Last Filed: 01/12/18 11:34> - Discharge Dispostion Decision to Admit order: Yes <Dexter Galeas - Last Filed: 01/12/18 14:19> Diagnosis at time of Disposition: Shortness of breath, Symptomatic anemia - Discharge Dispostion Condition at time of disposition: Fair - Referrals Referrals: Sebastian Puckett MD, MD [Primary Care Provider] - - Patient Instructions - Post Discharge Activity
[2018-01-12 11:37] LABS: BASO % 1.1 % (0-2.0); EOS % 0.4 % (0-4.5); HEMATOCRIT 21.2 % (32.4-45.2); MCHC 31.4 g/dl (32.0-36.0); MEAN CELL VOLUME 55.5 fl (80-96); MEAN PLT VOLUME 8.8 fl (7.5-11.1); MONO % 4.6 % (3.8-10.2); NEUT % 68.9 % (42.8-82.8); PLATELET COUNT 406 K/MM3 (134-434); RBC 3.83 M/mm3 (3.60-5.2); RDW 21.8 % (11.6-15.6); WHITE BLOOD COUNT 5.7 K/mm3 (4.0-10.0)
[2018-01-12 11:39] LABS: MCH 17.4 pg (25.7-33.7)
[2018-01-12 11:41] LABS: HEMOGLOBIN 6.7 GM/dL (10.7-15.3)
[2018-01-12 11:51] LABS: INR 1.1 (0.83-1.09)
[2018-01-12 12:09] LABS: ALBUMIN 3.6 g/dl (3.4-5.0); ALK PHOS 92 U/L (45-117); ANION GAP 9 MMOL/L (8-16); BILIRUBIN,TOTAL 0.4 mg/dL (0.2-1); BLOOD UREA NITROGEN 11 mg/dL (7-18); CALCIUM 9.3 mg/dL (8.5-10.1); CHLORIDE 108 mmol/L (98-107); CO2 23 mmol/L (21-32); CREATININE 0.7 mg/dL (0.55-1.3); GLUCOSE,RANDOM 89 mg/dL (74-106); MAGNESIUM 2.2 mg/dL (1.8-2.4); SGOT/AST 13 U/L (15-37); SGPT/ALT 13 U/L (13-61); SODIUM 140 mmol/L (136-145); TOT PROT 7.5 g/dl (6.4-8.2)
[2018-01-12 13:55] LABS: ANISOCYTOSIS 2+
[2018-01-12 13:56] LABS: MACROCYTOSIS 1+; OVALOCYTE 1+; TARGET CELLS 2+
--- NOTE | 2018-01-12 14:27 | HP ---
Admitting History and Physical - Admission Chief Complaint: came in for SOB History of Present Illness: The patient is a 72-year-old female, with a significant past medical history of psoriatic arthritis, anxiety attacks, depression, chronic anemia, chronic back pain, who presents to the ED with 2 weeks of progressively worsening shortness of breath. Patient states that initially she felt short of breath when ambulating but she is now experiencing the symptoms at rest. She states that her symptoms are similar to her previous episodes of pneumonia. 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 Pulmonary: Yes: Pneumonia Heme/Onc: Yes: Anemia Musculoskeletal: Yes: Other (arthritis) Dermatology: Yes: Psoriasis - Past Surgical History Past Surgical History: Yes: Hysterectomy - Smoking History Smoking history: Never smoked Have you smoked in the past 12 months: No Aproximately how many cigarettes per day: 0 If you are a former smoker, when did you quit?: 2008 - Alcohol/Substance Use Hx Alcohol Use: No History of Substance Use: reports: Cocaine, Marijuana - Social History ADL: Independent History of Recent Travel: No Home Medications - Allergies Allergies/Adverse Reactions: Allergies Allergy/AdvReac Type Severity Reaction Status Date / Time Penicillins Allergy Swelling Verified 01/12/18 10:08 - Home Medications Home Medications: Ambulatory Orders Sertraline HCl [Zoloft -] 100 mg PO DAILY 10/09/12 Apremilast [Otezla] 50 mg PO BID 11/15/14 Aspirin [ASA -] 81 mg PO DAILY 11/15/14 Esomeprazole Magnesium 40 mg PO DAILY 03/17/17 Oxycodone HCl [Oxycodone HCl ER] 10 mg PO DAILY 03/17/17 Review of Systems - Review of Systems Respiratory: reports: SOB, SOB on Exertion Physical Examination Vital Signs: Vital Signs Temperature 97.8 F 01/12/18 10:09 Pulse Rate 78 01/12/18 10:09 Respiratory Rate 18 01/12/18 10:09 Blood Pressure 132/66 01/12/18 10:09 O2 Sat by Pulse Oximetry (%) 100 01/12/18 10:09 Constitutional: Yes: Calm Cardiovascular: Yes: Regular Rate and Rhythm, S1, S2 Respiratory: Yes: CTA Bilaterally Gastrointestinal: Yes: Normal Bowel Sounds, Soft Edema: No Neurological: Yes: Alert, Oriented Labs: CBC, BMP 01/12/18 11:30 01/12/18 11:30 Problem List - Problems (1) Symptomatic anemia Assessment/Plan: to get 2 units of prbc- microcytic anemia iron panel to check level may need iv venofer heme and gi eval stool occult cxr patient cannot swAllow iron tablets takes iron liquid but dosnot like the taste Code(s): D64.9 - ANEMIA, UNSPECIFIED (2) PSA (psoriatic arthritis) Assessment/Plan: rheum consult on remicade next infusion is on jan 18 Code(s): L40.50 - ARTHROPATHIC PSORIASIS, UNSPECIFIED
[2018-01-12] MEDS ORDERED: ACETAMINOPHEN 325 MG TABLET (FP) PO PRN (15:06)
--- NOTE | 2018-01-12 15:27 | EKG ---
Test Reason : Blood Pressure : / mmHG Vent. Rate : 078 BPM Atrial Rate : 078 BPM P-R Int : 174 ms QRS Dur : 078 ms QT Int : 374 ms P-R-T Axes : 065 -36 051 degrees QTc Int : 426 ms NORMAL SINUS RHYTHM LEFT AXIS DEVIATION MODERATE VOLTAGE CRITERIA FOR LVH, MAY BE NORMAL VARIANT CANNOT RULE OUT SEPTAL INFARCT , AGE UNDETERMINED ABNORMAL ECG WHEN COMPARED WITH ECG OF 17-MAR-2017 21:00, MINIMAL CRITERIA FOR SEPTAL INFARCT ARE NOW PRESENT Confirmed by ROLANDO ALLISON MD ([id number]) on 01/12/2018 3:27:16 PM Referred By: Confirmed By:ROLANDO ALLISON MD
[2018-01-12] MEDS ORDERED: ZOLPIDEM TARTRATE 5 MG TABLET PO ONE (21:08)
--- NOTE | 2018-01-12 21:19 | CONSULT ---
Consult - text type - Consultation Consultation Note: Patient seen and examined The patient is a 72-year-old female, with a significant past medical history of psoriatic arthritis, anxiety attacks, depression, chronic anemia, chronic back pain, who presents to the ED with 2 weeks of progressively worsening shortness of breath. Patient states that initially she felt short of breath when ambulating but she is now experiencing the symptoms at rest. She states that her symptoms are similar to her previous episodes of pneumonia. 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 Pulmonary: Yes: Pneumonia Heme/Onc: Yes: Anemia Musculoskeletal: Yes: Other (arthritis) Dermatology: Yes: Psoriasis - Past Surgical History Past Surgical History: Yes: Hysterectomy - Smoking History Smoking history: Never smoked - Alcohol/Substance Use History of Substance Use: reports: Cocaine, Marijuana - Social History ADL: Independent - Allergies Allergies/Adverse Reactions: Allergies Allergy/AdvReac Type Severity Reaction Status Date / Time Penicillins Allergy Swelling Verified 01/12/18 10:08 - Home Medications Home Medications: Ambulatory Orders Sertraline HCl [Zoloft -] 100 mg PO DAILY 10/09/12 Apremilast [Otezla] 50 mg PO BID 11/15/14 Aspirin [ASA -] 81 mg PO DAILY 11/15/14 Esomeprazole Magnesium 40 mg PO DAILY 03/17/17 Oxycodone HCl [Oxycodone HCl ER] 10 mg PO DAILY 03/17/17 Physical Examination Vital Signs: Vital Signs Temperature 97.8 F 01/12/18 10:09 Pulse Rate 78 01/12/18 10:09 Respiratory Rate 18 01/12/18 10:09 Blood Pressure 132/66 01/12/18 10:09 O2 Sat by Pulse Oximetry (%) 100 01/12/18 10:09 Constitutional: Yes: Calm Cardiovascular: Yes: Regular Rate and Rhythm, S1, S2 Respiratory: Yes: CTA Bilaterally Gastrointestinal: Yes: Normal Bowel Sounds, Soft Edema: No Neurological: Yes: Alert, Oriented Labs: CBC, BMP 01/12/18 11:30 01/12/18 11:30 Problem List 72 y/o patient with h/o psoriatic arthritis, comes in wiht fatigue, cough, exertional SOB. Microcytic severe anemia . Hgb 5 suspect iron deficiency anemia Check iron studies/ferritin Getting 1 unit PRBCS GI w/u > 5yrs. ago--- mother with h/o stomach cancer and siser is currently in terminal state from cancer Will need GI w/u h/o hysterectomy patient wints to visit her terminally sill sister in [place] and wants to come back for follow up after ordered screening anemia tests will follow
[2018-01-12] MEDS: oxyCODONE HCL 5 MG TABLET PO PRN (21:48)
[2018-01-12 22:13] LABS: BASO % 0.7 % (0-2.0); EOS % 1.1 % (0-4.5); LYMPH % 44.5 % (8-40); MEAN CELL VOLUME 55.9 fl (80-96); MEAN PLT VOLUME 9.2 fl (7.5-11.1); MONO % 7.8 % (3.8-10.2); NEUT % 45.9 % (42.8-82.8); PLATELET COUNT 416 K/MM3 (134-434); RBC 3.75 M/mm3 (3.60-5.2); RDW 22.2 % (11.6-15.6); WHITE BLOOD COUNT 7.1 K/mm3 (4.0-10.0)
[2018-01-12 22:21] LABS: MCH 17.3 pg (25.7-33.7)
[2018-01-12 22:25] LABS: HEMOGLOBIN 6.5 GM/dL (10.7-15.3)
--- NOTE | 2018-01-13 01:09 | HOSP ---
Subjective - Review of Symptoms Events since last encounter: Hospitalist Encounter Was notified by the RN that the patient reports itching skin, while receiving blood transfusion Arrived to bedside, patient is asleep but arousable, patient reports the itching subsided after the nurse decreased the rate of the blood transfusion, Patient denies dysphagia, SOB, CP or palpitations. Upon inspection of skin, no uticaria, no erythema, no rash PE performed see EMR Plan: Continue current regimen Will continue to monitor Other Systems: Integumentary: pruritus Physical Examination Vital Signs: Vital Signs Temperature 98.6 F 01/12/18 18:27 Pulse Rate 79 01/12/18 18:27 Respiratory Rate 16 01/12/18 18:27 Blood Pressure 139/60 01/12/18 18:27 O2 Sat by Pulse Oximetry (%) 99 01/12/18 18:27 Constitutional: Yes: No Distress, Calm, Ashen, Pallor Eyes: Yes: Conjunctiva Clear (pale), EOM Intact, PERRL HENT: Yes: WNL, Atraumatic, Normocephalic Neck: Yes: WNL, Supple, Trachea Midline Cardiovascular: Yes: WNL, Regular Rate and Rhythm, S1, S2 Respiratory: Yes: WNL, Regular, CTA Bilaterally Gastrointestinal: Yes: WNL, Normal Bowel Sounds, Soft Renal/: Yes: WNL Breast(s): Yes: WNL Musculoskeletal: Yes: WNL Extremities: Yes: WNL Edema: No Peripheral Pulses WNL: Yes Integumentary: No: Erythema, Rash Neurological: Yes: WNL, Alert, Oriented ...Motor Strength: WNL Psychiatric: Yes: WNL, Alert, Oriented Labs: CBC, BMP 01/12/18 21:40 01/12/18 11:30 Laboratory Results - last 24 hr 01/12/18 01/12/18 01/12/18 11:30 11:30 11:30 WBC 5.7 RBC 3.83 Hgb 6.7 L* Hct 21.2 L D MCV 55.5 L D MCH 17.4 L MCHC 31.4 L RDW 21.8 H Plt Count 406 MPV 8.8 Absolute Neuts (auto) 3.9 Neutrophils % 68.9 Lymphocytes % 25.0 Monocytes % 4.6 Eosinophils % 0.4 Basophils % 1.1 Nucleated RBC % 0 Hypochromia 1+ Anisocytosis 2+ Microcytosis 2+ Macrocytosis 1+ Target Cells 2+ Ovalocytes 1+ PT with INR 13.00 INR 1.10 H PTT (Actin FS) D-Dimer Sodium 140 Potassium 4.0 Chloride 108 H Carbon Dioxide 23 Anion Gap 9 BUN 11 Creatinine 0.7 Creat Clearance w eGFR > 60 Random Glucose 89 Calcium 9.3 Magnesium 2.2 Total Bilirubin 0.4 AST 13 L ALT 13 Alkaline Phosphatase 92 Creatine Kinase 94 Troponin I < 0.02 Total Protein 7.5 Albumin 3.6 Anti-A Titer Blood Type Antibody Screen Crossmatch 01/12/18 01/12/18 01/12/18 11:55 14:11 14:11 WBC RBC Hgb Hct MCV MCH MCHC RDW Plt Count MPV Absolute Neuts (auto) Neutrophils % Lymphocytes % Monocytes % Eosinophils % Basophils % Nucleated RBC % Hypochromia Anisocytosis Microcytosis Macrocytosis Target Cells Ovalocytes PT with INR INR PTT (Actin FS) D-Dimer 1215 H Sodium Potassium Chloride Carbon Dioxide Anion Gap BUN Creatinine Creat Clearance w eGFR Random Glucose Calcium Magnesium Total Bilirubin AST ALT Alkaline Phosphatase Creatine Kinase Troponin I Total Protein Albumin Anti-A Titer Cancelled Blood Type Cancelled A POSITIVE Antibody Screen Cancelled Negative Crossmatch See Detail 01/12/18 01/12/18 01/12/18 17:17 21:40 21:40 WBC 7.1 RBC 3.75 Hgb 6.5 L* Hct 21.0 L MCV 55.9 L MCH 17.3 L MCHC 31.0 L RDW 22.2 H Plt Count 416 MPV 9.2 Absolute Neuts (auto) 3.3 Neutrophils % 45.9 D Lymphocytes % 44.5 H D Monocytes % 7.8 Eosinophils % 1.1 D Basophils % 0.7 Nucleated RBC % 0 Hypochromia Anisocytosis Microcytosis Macrocytosis Target Cells Ovalocytes PT with INR INR PTT (Actin FS) 30.4 D-Dimer Sodium Potassium Chloride Carbon Dioxide Anion Gap BUN Creatinine Creat Clearance w eGFR Random Glucose Calcium Magnesium Total Bilirubin AST ALT Alkaline Phosphatase Creatine Kinase Troponin I Total Protein Albumin Anti-A Titer Blood Type A POSITIVE Antibody Screen Crossmatch Intake & Output 01/10/18 01/11/18 01/12/18 01/13/18 23:59 23:59 23:59 23:59 Intake Total 600 Balance 600 Weight 81.647 kg Current Medications Generic Name Dose Route Start Last Admin Trade Name Freq PRN Reason Stop Dose Admin Acetaminophen 650 mg 01/12/18 15:06 Tylenol - PO Q6HPO PRN PAIN LEVEL 4 - 6 Oxycodone HCl 10 mg 01/12/18 15:07 01/12/18 21:48 Roxicodone - PO 10 mg BID PRN Administration PAIN LEVEL 7 - 10 Pantoprazole Sodium 40 mg 01/13/18 08:00 Protonix - PO DAILY@0800 [facility] Sertraline HCl 50 mg 01/13/18 08:00 Zoloft - PO DAILY@0800 [facility]
[2018-01-13] MEDS ORDERED: diphenhydrAMINE HCL 25 MG CAPSULE (FP) PO ONE (08:10)
--- NOTE | 2018-01-13 08:14 | RAPID ---
Physical Examination Vital Signs: Vital Signs Temperature 98.2 F 01/13/18 06:00 Pulse Rate 73 01/13/18 06:00 Respiratory Rate 18 01/13/18 06:00 Blood Pressure 142/78 01/13/18 06:00 O2 Sat by Pulse Oximetry (%) 98 01/12/18 20:00 Labs: CBC, BMP 01/12/18 21:40 01/12/18 11:30 Rapid Response - Rapid Response Assessment: rapid response was called at 8;09 patient was getting a blood transfusion and was complaining of itching. no associated throat swelling or throat closing vitals BP 127/51 HR 85 spo2 96 percent normla PE lungs CTA B/L RRR abdome soft; NT ND +BS plan: give 25 mg of benadryl PO
[2018-01-13] MEDS ORDERED: diphenhydrAMINE HCL 12.5 MG/5 ML UNIT-DOSE CUPS PO ONE (08:30)
--- NOTE | 2018-01-13 08:50 | PN ---
Progress Note, Physician History of Present Illness: c/o itching During PRBC - Current Medication List Current Medications: Active Medications Acetaminophen (Tylenol -) 650 mg PO Q6HPO PRN PRN Reason: PAIN LEVEL 4 - 6 Oxycodone HCl (Roxicodone -) 10 mg PO BID PRN PRN Reason: PAIN LEVEL 7 - 10 Last Admin: 01/12/18 21:48 Dose: 10 mg Pantoprazole Sodium (Protonix -) 40 mg PO DAILY@0800 [facility] Sertraline HCl (Zoloft -) 50 mg PO DAILY@0800 [facility] - Objective Vital Signs: Vital Signs Temperature 98.2 F 01/13/18 06:00 Pulse Rate 73 01/13/18 06:00 Respiratory Rate 18 01/13/18 06:00 Blood Pressure 142/78 01/13/18 06:00 O2 Sat by Pulse Oximetry (%) 98 01/12/18 20:00 Cardiovascular: Yes: Regular Rate and Rhythm Respiratory: Yes: Regular, CTA Bilaterally Gastrointestinal: Yes: Normal Bowel Sounds, Soft. No: Tenderness Labs: CBC, BMP 01/12/18 21:40 01/12/18 11:30 INR, PTT INR 1.10 (0.83-1.09) H 01/12/18 11:30 Problem List - Problems (1) Symptomatic anemia Assessment/Plan: -Symptomatic -c/o dysphagia -Transfused --check prbc -GI and Hem Code(s): D64.9 - ANEMIA, UNSPECIFIED (2) PSA (psoriatic arthritis) Assessment/Plan: -hold otezla -Rheumo Code(s): L40.50 - ARTHROPATHIC PSORIASIS, UNSPECIFIED (3) Anxiety Code(s): F41.9 - ANXIETY DISORDER, UNSPECIFIED (4) Chronic back pain Assessment/Plan: -h/o surgery -oxycodone Code(s): M54.9 - DORSALGIA, UNSPECIFIED; G89.29 - OTHER CHRONIC PAIN
[2018-01-13] MEDS: SERTRALINE HCL 50 MG TABLET (FP) PO SCH ×2 (09:45→10:00)
[2018-01-13] MEDS: oxyCODONE HCL 5 MG TABLET PO PRN ×2 (10:11→17:48)
[2018-01-13] MEDS: PANTOPRAZOLE 40 MG TABLET (FP) PO SCH ×2 (10:12→10:30)
[2018-01-13 10:13] LABS: BASO % 0.4 % (0-2.0); EOS % 1.6 % (0-4.5); HEMATOCRIT 25.9 % (32.4-45.2); HEMOGLOBIN 8.2 GM/dL (10.7-15.3); MCHC 31.6 g/dl (32.0-36.0); MEAN CELL VOLUME 60.4 fl (80-96); MEAN PLT VOLUME 8.9 fl (7.5-11.1); MONO % 8.8 % (3.8-10.2); NEUT % 47.2 % (42.8-82.8); PLATELET COUNT 331 K/MM3 (134-434); RBC 4.28 M/mm3 (3.60-5.2); WHITE BLOOD COUNT 5.4 K/mm3 (4.0-10.0)
[2018-01-13 10:41] LABS: ALBUMIN 3.4 g/dl (3.4-5.0); ALK PHOS 90 U/L (45-117); ANION GAP 11 MMOL/L (8-16); BILIRUBIN,TOTAL 0.6 mg/dL (0.2-1); BLOOD UREA NITROGEN 10 mg/dL (7-18); CALCIUM 9.1 mg/dL (8.5-10.1); CHLORIDE 108 mmol/L (98-107); CO2 21 mmol/L (21-32); CREATININE 0.8 mg/dL (0.55-1.3); GLUCOSE,RANDOM 91 mg/dL (74-106); POTASSIUM 4.1 mmol/L (3.5-5.1); SGOT/AST 12 U/L (15-37); SGPT/ALT 14 U/L (13-61); SODIUM 140 mmol/L (136-145); TOT PROT 7.1 g/dl (6.4-8.2)
[2018-01-13 11:05] LABS: MCH 19.1 pg (25.7-33.7)
[2018-01-13 12:31] LABS: PHOSPHOROUS 2.8 mg/dL (2.5-4.9)
--- NOTE | 2018-01-13 14:42 | PN ---
Progress Note (short form) - Note Progress Note: PROGRESS NOTE FOR HEMATOLOGY/ONCOLOGY Patient seen and examined by me at bedside S/P 1 PRBC with the 2nd not completed. When patient was being transfused with the first PRBC, she was complaining of pruritis. Rate was decreased and patient tolerated the first unit. When second unit was given, patient has another transfusion reaction, prutitis as well. Patient currently complaining of her chronic back pain and is demanding her pain medications Otherwise, patient denies fever, chills, nausea, vomiting, abdominal pain, chest pain, palpitation, shortness of breath, headaches. Vital Signs Temperature 98.2 F 01/13/18 06:00 Pulse Rate 73 01/13/18 06:00 Respiratory Rate 18 01/13/18 09:00 Blood Pressure 142/78 01/13/18 06:00 O2 Sat by Pulse Oximetry (%) 98 01/13/18 09:00 PHYSICAL EXAMINATION: GENERAL: Awake, alert, no acute distress EYES: PERRL, EOMI. ENT: Oropharynx clear without exudates. Moist mucous membranes. No oral thrush NECK: (-) lymphadenopathy, JVD, or masses. LUNGS: CTA Bilaterally. No accessory muscle use. HEART: RRR, normal S1 and S2 BREAST: No discoloration, masses, or retraction. No nipple discharge ABDOMEN: Soft, nontender, not distended, normoactive bowel sounds EXTREMITIES:No peripheral edema. Laboratory Tests 01/13/18 10:00 01/13/18 01/13/18 01/13/18 10:00 10:00 10:23 MCV 60.4 L D MCH 19.1 L D MCHC 31.6 L RDW 27.0 H Lymphocytes % 42.0 H Total Protein 7.1 Albumin 3.4 Vitamin B12 821 Serum Folate 19 H TSH 0.71 Free T4 0.95 ASSESSMENT AND PLAN: Patient is a 72 year old female who presented for worsening shortness of breath and was found to have symptomatic anemia with a H/H of 6.7/21.2. We were consulted for further evaluation. Problem List: Severe Symptomatic Anemia Microcytic Anemia- Iron deficiency Anemia Psoriatic Arthritis Anxiety attacks Depression chronic back pain PLAN: -Patient has had anemia for man years and on iron liquid because she's unable to tolerate iron pills. However, admits to being very noncompliant with her liquid Iron and states she takes it "every once in a while." Suspect patient has iron def anemia due to noncompliance with medication. -Patient s/p 1 PRBC transfusion with second one not completed due to prutitis -Iron studies pending -Patient requesting IV Iron -Will need GI work up, including FOBT
--- NOTE | 2018-01-13 15:35 | CONSULT ---
Consult Consult Specialty:: Rheumatology - History of Present Illness History of Present Illness: 72-year-old female, with past medical history of psoriatic arthritis, anxiety attacks, depression, chronic anemia, chronic back pain, s/p of 5 surgeries in the lumbar spine [id number], cervical spine surgery 02/2015, and s/p hysterectomy , admitted with a 2 weeks history of progressive shortness of breath. The patient reports she has a 3 week history of shortness of breath and dizziness. She denies fever. On admission she had significant anemia (H/H: 6.7 / 21.2) Today she received a transfusion, however she developed significant pruritus with no breathing problems. CXR: no acute pathology Psoriasis. Psoriatic arthritis since age 26/. She has been treated in the past with Otezla and presently on Remicade apparently for the last 5 years. ( Breastfeeding Peer Counselor: Dr. Hampton). Apparently she has been well controlled with the medication, she has minimal arthralgia in wrists and knees and has minimal morning stiffness. - History Source History Provided By: Patient, Medical Record Limitations to Obtaining History: No Limitations - Past Medical History W[employer]ER: Yes: Dementia Pulmonary: Yes: Pneumonia Musculoskeletal: Yes: Other (arthritis) Dermatology: Yes: Psoriasis - Past Surgical History Past Surgical History: Yes: Hysterectomy - Alcohol/Substance Use Hx Alcohol Use: No History of Substance Use: reports: Cocaine, Marijuana - Smoking History Smoking history: Former smoker Have you smoked in the past 12 months: No Aproximately how many cigarettes per day: 0 If you are a former smoker, when did you quit?: 2008 - Social History ADL: Independent History of Recent Travel: No Home Medications - Allergies Allergies/Adverse Reactions: Allergies Allergy/AdvReac Type Severity Reaction Status Date / Time Penicillins Allergy Swelling Verified 01/12/18 10:08 - Home Medications Home Medications: Ambulatory Orders Sertraline HCl [Zoloft -] 100 mg PO DAILY 10/09/12 Apremilast [Otezla] 50 mg PO BID 11/15/14 Aspirin [ASA -] 81 mg PO DAILY 11/15/14 Esomeprazole Magnesium 40 mg PO DAILY 03/17/17 Oxycodone HCl [Oxycodone HCl ER] 10 mg PO DAILY 03/17/17 Zolpidem Tartrate [Ambien] 5 mg PO HS 01/12/18 Review of Systems - Review of Systems Constitutional: reports: Other (Pruritus) Eyes: reports: No Symptoms HENT: reports: No Symptoms, Ocular Prosthesis Cardiovascular: reports: Shortness of Breath Respiratory: reports: No Symptoms, SOB Gastrointestinal: reports: No Symptoms Genitourinary: reports: No Symptoms Physical Exam Vital Signs: Vital Signs Temperature 98.2 F 01/13/18 06:00 Pulse Rate 73 01/13/18 06:00 Respiratory Rate 18 01/13/18 09:00 Blood Pressure 142/78 01/13/18 06:00 O2 Sat by Pulse Oximetry (%) 98 01/13/18 09:00 Constitutional: Yes: Moderate Distress Eyes: Yes: WNL HENT: Yes: WNL Neck: Yes: WNL Cardiovascular: Yes: WNL Respiratory: Yes: WNL Gastrointestinal: Yes: WNL Musculoskeletal: Yes: Other (No active joints) Labs: CBC, BMP 01/13/18 10:00 Laboratory Tests 01/12/18 01/12/18 01/13/18 11:30 14:11 10:00 WBC 5.4 RBC 4.28 Hgb 8.2 L Hct 25.9 L D MCH 19.1 L D MCHC 31.6 L RDW 27.0 H Plt Count 331 D MPV 8.9 Absolute Neuts (auto) 2.5 Neutrophils % 47.2 Monocytes % 8.8 Eosinophils % 1.6 Basophils % 0.4 Nucleated RBC % 0 PT with INR 13.00 INR 1.10 H D-Dimer 1215 H Ferritin Total Bilirubin AST ALT Alkaline Phosphatase Total Protein Albumin Vitamin B12 Serum Folate TSH Free T4 01/13/18 01/13/18 10:00 10:23 WBC RBC Hgb Hct MCH MCHC RDW Plt Count MPV Absolute Neuts (auto) Neutrophils % Monocytes % Eosinophils % Basophils % Nucleated RBC % PT with INR INR D-Dimer Ferritin 19.7 Total Bilirubin 0.6 AST 12 L ALT 14 Alkaline Phosphatase 90 Total Protein 7.1 Albumin 3.4 Vitamin B12 821 Serum Folate 19 H TSH 0.71 Free T4 0.95 Problem List - Problems (1) PSA (psoriatic arthritis) Assessment/Plan: Psoriatic arthritis, disease not active. Admitted with significant anemia, etiology to be determined. It is unlikely that psoriatic arthritis or treatment with Remicade are related to anemia. Code(s): L40.50 - ARTHROPATHIC PSORIASIS, UNSPECIFIED
[2018-01-13] MEDS ORDERED: ZOLPIDEM TARTRATE 5 MG TABLET PO ONE (21:25)
[2018-01-14] MEDS: oxyCODONE HCL 5 MG TABLET PO PRN ×3 (05:47→22:36)
[2018-01-14] MEDS: PANTOPRAZOLE 40 MG TABLET (FP) PO SCH (08:00)
[2018-01-14] MEDS: SERTRALINE HCL 50 MG TABLET (FP) PO SCH (08:00)
[2018-01-14 10:10] LABS: SERUM IRON SATURATION 6 % (15-55); TOTAL IRON BINDING CAPACITY 419 ug/dL (250-450); UIBC 393 ug/dL (118-369)
--- NOTE | 2018-01-14 12:29 | PN ---
Progress Note, Physician Chief Complaint: AWAKE ALERT EVENTS AND NOTES REVIEWED PATIENT IS C/O DIZZINESS AND SOB - Current Medication List Current Medications: Active Medications Acetaminophen (Tylenol -) 650 mg PO Q6HPO PRN PRN Reason: PAIN LEVEL 4 - 6 Diphenhydramine HCl (Benadryl Injection -) 12.5 mg IVPUSH Q4H PRN PRN Reason: FOR ITCHING Oxycodone HCl (Roxicodone -) 10 mg PO Q8H PRN PRN Reason: PAIN LEVEL 7 - 10 Last Admin: 01/14/18 05:47 Dose: 10 mg Pantoprazole Sodium (Protonix -) 40 mg PO DAILY@0800 [facility] Last Admin: 01/14/18 08:00 Dose: 40 mg Sertraline HCl (Zoloft -) 50 mg PO DAILY@0800 [facility] Last Admin: 01/14/18 08:00 Dose: 50 mg - Objective Vital Signs: Vital Signs Temperature 98.0 F 01/14/18 06:00 Pulse Rate 68 01/14/18 06:00 Respiratory Rate 20 01/14/18 06:00 Blood Pressure 132/64 01/14/18 06:00 O2 Sat by Pulse Oximetry (%) 98 01/13/18 21:00 Constitutional: Yes: Mild Distress Eyes: Yes: WNL HENT: Yes: WNL Neck: Yes: WNL Cardiovascular: Yes: WNL Respiratory: Yes: WNL Gastrointestinal: Yes: WNL Genitourinary: Yes: WNL Musculoskeletal: Yes: Muscle Weakness Extremities: Yes: Other Edema: No Integumentary: Yes: Rash Wound/Incision: Yes: Clean/Dry Neurological: Yes: WNL ...Motor Strength: WNL Psychiatric: Yes: WNL Labs: CBC, BMP 01/13/18 10:00 INR, PTT INR 1.10 (0.83-1.09) H 01/12/18 11:30 Problem List - Problems (1) PSA (psoriatic arthritis) Code(s): L40.50 - ARTHROPATHIC PSORIASIS, UNSPECIFIED (2) Shortness of breath Code(s): R06.02 - SHORTNESS OF BREATH (3) Symptomatic anemia Code(s): D64.9 - ANEMIA, UNSPECIFIED Assessment/Plan TRANSFUSE PRBC RHEUM/HEME CONSULT CHECK LABS OOB TO CHAIR WITH CAUTION
[2018-01-14] MEDS: POLYETHYLENE GLYCOL 3350 119 GM BTL PO SCH (14:37)
[2018-01-14] MEDS ORDERED: SENNOSIDES 8.6MG TABLET (FP) PO SCH (22:00)
[2018-01-14] MEDS: ZOLPIDEM TARTRATE 5 MG TABLET PO PRN (22:38)
[2018-01-15] MEDS: oxyCODONE HCL 5 MG TABLET PO PRN ×2 (06:44→21:42)
[2018-01-15 08:28] LABS: MCHC 29.7 g/dl (32.0-36.0); MEAN CELL VOLUME 60.1 fl (80-96); MEAN PLT VOLUME 9.3 fl (7.5-11.1); PLATELET COUNT 319 K/MM3 (134-434); RBC 4.49 M/mm3 (3.60-5.2); RDW 27.6 % (11.6-15.6); WHITE BLOOD COUNT 5.4 K/mm3 (4.0-10.0)
[2018-01-15] MEDS: PANTOPRAZOLE 40 MG TABLET (FP) PO SCH (08:30)
[2018-01-15] MEDS: SERTRALINE HCL 50 MG TABLET (FP) PO SCH (08:30)
[2018-01-15 08:31] LABS: ALBUMIN 3.2 g/dl (3.4-5.0); ALK PHOS 87 U/L (45-117); ANION GAP 10 MMOL/L (8-16); BILIRUBIN,TOTAL 0.4 mg/dL (0.2-1); BLOOD UREA NITROGEN 13 mg/dL (7-18); CALCIUM 8.8 mg/dL (8.5-10.1); CHLORIDE 106 mmol/L (98-107); CO2 25 mmol/L (21-32); CREATININE 0.8 mg/dL (0.55-1.3); GLUCOSE,RANDOM 84 mg/dL (74-106); POTASSIUM 4.4 mmol/L (3.5-5.1); SGOT/AST 11 U/L (15-37); SGPT/ALT 12 U/L (13-61); SODIUM 140 mmol/L (136-145); TOT PROT 6.8 g/dl (6.4-8.2)
[2018-01-15 08:37] LABS: MCH 17.9 pg (25.7-33.7)
[2018-01-15] MEDS: POLYETHYLENE GLYCOL 3350 119 GM BTL PO SCH (10:12)
--- NOTE | 2018-01-15 12:02 | CON.GI ---
Consult Consult Specialty:: GI Referred by:: Lavern/Gilbert/Miryam - History of Present Illness History of Present Illness: 72 y/o F with PMH of colonic polyps, wasasked to be seen because of severe anemia associate with shortness of breath. She denies LOC, chest pain, melena and rectal bleeding. She was lost in follow and never came back after her first colonoscopy after 15 years. She lost interest because of the bowel preparation. Today she is asymptomatic, denies any gi symptoms, chest pain and shortness of breath. She was suppose to have bowel preparation today but refused. - Past Medical History [employer]: Yes: Dementia Pulmonary: Yes: Pneumonia Musculoskeletal: Yes: Other (arthritis) Dermatology: Yes: Psoriasis - Past Surgical History Past Surgical History: Yes: Hysterectomy - Alcohol/Substance Use Hx Alcohol Use: No History of Substance Use: reports: Cocaine, Marijuana - Smoking History Smoking history: Former smoker Have you smoked in the past 12 months: No Aproximately how many cigarettes per day: 0 If you are a former smoker, when did you quit?: 2008 - Social History ADL: Independent History of Recent Travel: No Home Medications - Allergies Allergies/Adverse Reactions: Allergies Allergy/AdvReac Type Severity Reaction Status Date / Time Penicillins Allergy Swelling Verified 01/12/18 10:08 - Home Medications Home Medications: Ambulatory Orders Sertraline HCl [Zoloft -] 100 mg PO DAILY 10/09/12 Apremilast [Otezla] 50 mg PO BID 11/15/14 Aspirin [ASA -] 81 mg PO DAILY 11/15/14 Esomeprazole Magnesium 40 mg PO DAILY 03/17/17 Oxycodone HCl [Oxycodone HCl ER] 10 mg PO DAILY 03/17/17 Zolpidem Tartrate [Ambien] 5 mg PO HS 01/12/18 Review of Systems - Review of Systems Constitutional: denies: No Symptoms, Chills, Diaphoresis, Fever, Lethargy, Loss of Appetite, Malaise, Night Sweats, Unintentional Wgt. Loss, Weakness, Other Eyes: denies: No Symptoms, Blind Spots, Blurred Vision, Double Vision, Eye Pain , Floaters, Photophobia, Recent Change in Vision, Other HENT: denies: No Symptoms, Difficult Swallowing, Ear Discharge, Ear Pain, Epistaxis, Gingival Bleeding, Hearing Loss, Mouth Swelling, Nasal Congestion, Ocular Prosthesis, Throat Pain, Toothache, Ringing in Ears, Other Neck: denies: No Symptoms, Decreased ROM, Lumps, Pain on Movement, Stiffness, Swollen Glands, Tenderness, Other Cardiovascular: denies: No Symptoms, Chest Pain, Edema, Palpitations, Shortness of Breath, Other Respiratory: denies: No Symptoms, Cough, Exercise Intolerance, Hemoptysis, Orthopnea, PND, Snoring, SOB, SOB on Exertion, Wheezing, Other Gastrointestinal: denies: No Symptoms, Abdominal Pain, Bloating, Constipation, Diarrhea, Dysphagia, Indigestion, Melena, Nausea, Rectal Bleeding, Vomiting, Vomiting Blood, Other Genitourinary: denies: No Symptoms, Burning, Discharge, Dysuria, Flank Pain, Frequency, Hematuria, Incontinence, Lesions, Menses, Pain, Testicular Mass, Testicular Pain, Testicular Swelling, Urgency, Vaginal Bleeding, Other Physical Exam-GI Vital Signs: Vital Signs Temperature 98 F 01/15/18 07:34 Pulse Rate 68 01/15/18 07:34 Respiratory Rate 20 01/15/18 07:34 Blood Pressure 136/72 01/15/18 07:34 O2 Sat by Pulse Oximetry (%) 99 01/14/18 21:00 Constitutional: Yes: Well Nourished Eyes: Yes: Conjunctiva Clear HENT: Yes: Atraumatic Neck: Yes: Supple Cardiovascular: Yes: Regular Rate and Rhythm Respiratory: Yes: CTA Bilaterally ...Palpate: Yes: Soft. No: Firm/Rigid, Guarding, Hepatomegaly, Mass, Pulsatile Mass, Splenomegaly, Tenderness, Tenderness, Epigastium Labs: CBC, BMP 01/15/18 07:00 01/15/18 07:00 INR, PTT INR 1.10 (0.83-1.09) H 01/12/18 11:30 Problem List - Problems (1) History of colonic polyps Code(s): Z86.010 - PERSONAL HISTORY OF COLONIC POLYPS (2) Symptomatic anemia Assessment/Plan: now resolved.SHe had transfusion reaction R>for EGD and colonoscopy Tuesday of medically cleared stool guaiac if not done recently consider hematology consult Code(s): D64.9 - ANEMIA, UNSPECIFIED
--- NOTE | 2018-01-15 14:03 | PN ---
Progress Note, Physician Chief Complaint: AWAKE ALERT FAMILY BEDSIDE NAD - Current Medication List Current Medications: Active Medications Acetaminophen (Tylenol -) 650 mg PO Q6HPO PRN PRN Reason: PAIN LEVEL 4 - 6 Diphenhydramine HCl (Benadryl Injection -) 12.5 mg IVPUSH Q4H PRN PRN Reason: FOR ITCHING Oxycodone HCl (Roxicodone -) 10 mg PO Q8H PRN PRN Reason: PAIN LEVEL 7 - 10 Last Admin: 01/15/18 06:44 Dose: 10 mg Pantoprazole Sodium (Protonix -) 40 mg PO DAILY@0800 [facility] Last Admin: 01/15/18 08:30 Dose: 40 mg Sertraline HCl (Zoloft -) 50 mg PO DAILY@0800 [facility] Last Admin: 01/15/18 08:30 Dose: 50 mg Sodium Phosphate (Fleet Adult Rectal Enema -) [address] ONCE ONE Stop: 01/17/18 04:01 Zolpidem Tartrate (Ambien -) 5 mg PO HS PRN PRN Reason: INSOMNIA Last Admin: 01/14/18 22:38 Dose: 5 mg - Objective Vital Signs: Vital Signs Temperature 98.0 F 01/15/18 10:00 Pulse Rate 95 H 01/15/18 10:00 Respiratory Rate 20 01/15/18 10:00 Blood Pressure 141/89 01/15/18 10:00 O2 Sat by Pulse Oximetry (%) 100 01/15/18 09:00 Constitutional: Yes: No Distress Eyes: Yes: WNL HENT: Yes: WNL Neck: Yes: WNL Cardiovascular: Yes: WNL Respiratory: Yes: WNL Gastrointestinal: Yes: WNL Musculoskeletal: Yes: Joint Stiffness, Joint Swelling, Muscle Weakness Extremities: Yes: Deformity Edema: No Integumentary: Yes: Rash Wound/Incision: Yes: Clean/Dry Neurological: Yes: WNL ...Motor Strength: WNL Psychiatric: Yes: WNL Labs: CBC, BMP 01/15/18 07:00 01/15/18 07:00 INR, PTT INR 1.10 (0.83-1.09) H 01/12/18 11:30 Problem List - Problems (1) PSA (psoriatic arthritis) Code(s): L40.50 - ARTHROPATHIC PSORIASIS, UNSPECIFIED (2) Shortness of breath Code(s): R06.02 - SHORTNESS OF BREATH (3) Symptomatic anemia Code(s): D64.9 - ANEMIA, UNSPECIFIED Assessment/Plan SCHEDULED FOR EGD/COLONOSCOPY WITH GI TOMORROW PAIN CONTROL CHECK H/H TRANSFUSE NEEDED PPI
[2018-01-15] MEDS ORDERED: IRON SUCROSE INJECTION 200 MG in SODIUM CHLORIDE 90 ML IVPB ONE (14:45)
[2018-01-15] MEDS: ZOLPIDEM TARTRATE 5 MG TABLET PO PRN (21:42)
[2018-01-16] MEDS ORDERED: PEG3350/SOD SULF,BICARB,CL/KCL 4,000 ML SOLN.RECON PO ONE (06:00)
[2018-01-16] MEDS: oxyCODONE HCL 5 MG TABLET PO PRN ×3 (06:41→19:18)
[2018-01-16] MEDS: PANTOPRAZOLE 40 MG TABLET (FP) PO SCH (08:52)
[2018-01-16] MEDS: SERTRALINE HCL 50 MG TABLET (FP) PO SCH (08:52)
--- NOTE | 2018-01-16 09:45 | PN ---
Progress Note, Physician - Current Medication List Current Medications: Active Medications Acetaminophen (Tylenol -) 650 mg PO Q6HPO PRN PRN Reason: PAIN LEVEL 4 - 6 Diphenhydramine HCl (Benadryl Injection -) 12.5 mg IVPUSH Q4H PRN PRN Reason: FOR ITCHING Oxycodone HCl (Roxicodone -) 10 mg PO Q6H PRN PRN Reason: PAIN LEVEL 7 - 10 Last Admin: 01/16/18 06:41 Dose: 10 mg Pantoprazole Sodium (Protonix -) 40 mg PO DAILY@0800 [facility] Last Admin: 01/16/18 08:52 Dose: 40 mg Sertraline HCl (Zoloft -) 50 mg PO DAILY@0800 [facility] Last Admin: 01/16/18 08:52 Dose: 50 mg Sodium Phosphate (Fleet Adult Rectal Enema -) 133 ml [place] ONCE ONE Stop: 01/17/18 04:01 Zolpidem Tartrate (Ambien -) 5 mg PO HS PRN PRN Reason: INSOMNIA Last Admin: 01/15/18 21:42 Dose: 5 mg - Objective Vital Signs: Vital Signs Temperature 98.2 F 01/16/18 06:00 Pulse Rate 70 01/16/18 06:00 Respiratory Rate 20 01/16/18 06:00 Blood Pressure 123/71 01/16/18 06:00 O2 Sat by Pulse Oximetry (%) 98 01/15/18 21:00 Labs: CBC, BMP 01/15/18 07:00 01/15/18 07:00 INR, PTT INR 1.10 (0.83-1.09) H 01/12/18 11:30 Problem List - Problems (1) Symptomatic anemia Code(s): D64.9 - ANEMIA, UNSPECIFIED (2) PSA (psoriatic arthritis) Code(s): L40.50 - ARTHROPATHIC PSORIASIS, UNSPECIFIED (3) Anxiety Code(s): F41.9 - ANXIETY DISORDER, UNSPECIFIED (4) Chronic back pain Code(s): M54.9 - DORSALGIA, UNSPECIFIED; G89.29 - OTHER CHRONIC PAIN
--- NOTE | 2018-01-16 11:20 | PN ---
Progress Note, Physician - Current Medication List Current Medications: Active Medications Acetaminophen (Tylenol -) 650 mg PO Q6HPO PRN PRN Reason: PAIN LEVEL 4 - 6 Diphenhydramine HCl (Benadryl Injection -) 12.5 mg IVPUSH Q4H PRN PRN Reason: FOR ITCHING Oxycodone HCl (Roxicodone -) 10 mg PO Q6H PRN PRN Reason: PAIN LEVEL 7 - 10 Last Admin: 01/16/18 06:41 Dose: 10 mg Pantoprazole Sodium (Protonix -) 40 mg PO DAILY@0800 [facility] Last Admin: 01/16/18 08:52 Dose: 40 mg Sertraline HCl (Zoloft -) 50 mg PO DAILY@0800 [facility] Last Admin: 01/16/18 08:52 Dose: 50 mg Sodium Phosphate (Fleet Adult Rectal Enema -) 133 ml [place] ONCE ONE Stop: 01/17/18 04:01 Zolpidem Tartrate (Ambien -) 5 mg PO HS PRN PRN Reason: INSOMNIA Last Admin: 01/15/18 21:42 Dose: 5 mg - Objective Vital Signs: Vital Signs Temperature 98.2 F 01/16/18 06:00 Pulse Rate 70 01/16/18 06:00 Respiratory Rate 20 01/16/18 06:00 Blood Pressure 123/71 01/16/18 06:00 O2 Sat by Pulse Oximetry (%) 98 01/15/18 21:00 Cardiovascular: Yes: Regular Rate and Rhythm Respiratory: Yes: Regular, CTA Bilaterally Gastrointestinal: Yes: Normal Bowel Sounds, Soft. No: Tenderness Labs: CBC, BMP 01/15/18 07:00 01/15/18 07:00 INR, PTT INR 1.10 (0.83-1.09) H 01/12/18 11:30 Problem List - Problems (1) Symptomatic anemia Assessment/Plan: -Symptomatic -c/o dysphagia -Transfused --check prbc -GI and Hem noted -EGD and Colon in am Code(s): D64.9 - ANEMIA, UNSPECIFIED (2) PSA (psoriatic arthritis) Assessment/Plan: -hold otezla -Rheumo noted Code(s): L40.50 - ARTHROPATHIC PSORIASIS, UNSPECIFIED (3) Anxiety Code(s): F41.9 - ANXIETY DISORDER, UNSPECIFIED (4) Chronic back pain Assessment/Plan: -h/o surgery -oxycodone Code(s): M54.9 - DORSALGIA, UNSPECIFIED; G89.29 - OTHER CHRONIC PAIN
--- NOTE | 2018-01-16 16:03 | PN ---
Progress Note (short form) - Note Progress Note: PROGRESS NOTE FOR HEMATOLOGY/ONCOLOGY Patient seen and examined by me at bedside No acute events Still complains of chronic back pain Otherwise, patient denies fever, chills, nausea, vomiting, abdominal pain, chest pain, palpitation, shortness of breath, headaches. Vital Signs Temperature 98.2 F 01/16/18 13:05 Pulse Rate 73 01/16/18 13:05 Respiratory Rate 16 01/16/18 13:05 Blood Pressure 169/74 01/16/18 13:05 O2 Sat by Pulse Oximetry (%) 98 01/15/18 21:00 PHYSICAL EXAMINATION: GENERAL: Awake, alert, no acute distress EYES: PERRL, EOMI. ENT: Oropharynx clear without exudates. Moist mucous membranes. No oral thrush NECK: (-) lymphadenopathy, JVD, or masses. LUNGS: CTA Bilaterally. No accessory muscle use. HEART: RRR, normal S1 and S2 BREAST: No discoloration, masses, or retraction. No nipple discharge ABDOMEN: Soft, nontender, not distended, normoactive bowel sounds EXTREMITIES:No peripheral edema. Laboratory Tests 01/15/18 07:00 01/15/18 07:00 01/13/18 01/13/18 01/13/18 09:45 10:00 10:23 Total Protein Albumin Vitamin B12 821 Folate 1432 Serum Folate Folate Hemolysate 396.8 TSH Cancelled Free T4 0.95 01/13/18 01/15/18 10:23 07:00 Total Protein 6.8 Albumin 3.2 L Vitamin B12 Folate Serum Folate 19 H Folate Hemolysate TSH Free T4 ASSESSMENT AND PLAN: Patient is a 72 year old female who presented for worsening shortness of breath and was found to have symptomatic anemia with a H/H of 6.7/21.2. We were consulted for further evaluation. Problem List: Severe Symptomatic Anemia Microcytic Anemia- Iron deficiency Anemia Psoriatic Arthritis Anxiety attacks Depression chronic back pain PLAN: -Patient with Iron deficiency anemia and is now receiving IV Venofer -Venofer 200mg IV over 60 min tomorrow -Plans for EGD/Colonscopy tomorrow -Hgb Electrophoresis ordered
--- NOTE | 2018-01-16 19:31 | PN ---
GI Progress Note - Objective Vital Signs: Vital Signs Temperature 98.0 F 01/16/18 18:00 Pulse Rate 72 01/16/18 18:00 Respiratory Rate 20 01/16/18 18:00 Blood Pressure 155/90 01/16/18 18:00 O2 Sat by Pulse Oximetry (%) 96 01/16/18 09:00 Labs: CBC, BMP 01/15/18 07:00 01/15/18 07:00 INR, PTT INR 1.10 (0.83-1.09) H 01/12/18 11:30 Problem List - Problems (1) History of colonic polyps Code(s): Z86.010 - PERSONAL HISTORY OF COLONIC POLYPS (2) Symptomatic anemia Code(s): D64.9 - ANEMIA, UNSPECIFIED
[2018-01-16] MEDS: MAGNESIUM CITRATE 300 ML BOTTLE PO SCH ×2 (21:04→23:15)
[2018-01-16] MEDS: ZOLPIDEM TARTRATE 5 MG TABLET PO PRN (22:39)
[2018-01-17] MEDS ORDERED: SODIUM PHOSPHATE/NA BIPHOS 133 ML ENEMA PR ONE (04:00)
[2018-01-17] MEDS ORDERED: INSULIN (NOVOLOG) ASPART 100 UNITS/ML 10ML VIAL ONE (06:40)
[2018-01-17] MEDS ORDERED: INSULIN (LEVEMIR) 100 UNITS/ML UNITS SQ ONE (06:41)
[2018-01-17 09:27] LABS: HEMATOCRIT 25.3 % (32.4-45.2); HEMOGLOBIN 8.1 GM/dL (10.7-15.3); MEAN PLT VOLUME 9.2 fl (7.5-11.1); PLATELET COUNT 333 K/MM3 (134-434); RBC 4.23 M/mm3 (3.60-5.2); RDW 28.4 % (11.6-15.6); WHITE BLOOD COUNT 4.6 K/mm3 (4.0-10.0)
[2018-01-17 09:29] LABS: MCH 19.2 pg (25.7-33.7)
[2018-01-17] MEDS ORDERED: ACETAMINOPHEN 325 MG TABLET (FP) PO PRN (09:51)
[2018-01-17] MEDS ORDERED: IRON SUCROSE INJECTION 200 MG in SODIUM CHLORIDE 90 ML IVPB ONE ×2 (10:00→10:30)
[2018-01-17] MEDS ORDERED: PANTOPRAZOLE SODIUM 40 MG in SODIUM CHLORIDE 100 ML IVPB SCH (10:00)
[2018-01-17] MEDS: METOCLOPRAMIDE HCL INJECTION 10 MG/2 ML VIAL IVPB SCH ×2 (10:01→18:43)
[2018-01-17] MEDS: SODIUM CHLORIDE 1,000 ML IV SCH ×2 (10:01→21:08)
[2018-01-17] MEDS: PANTOPRAZOLE SODIUM 40 MG VIAL IVPUSH SCH ×2 (10:01→21:51)
[2018-01-17] MEDS: PANTOPRAZOLE 40 MG TABLET (FP) PO SCH (10:02)
[2018-01-17] MEDS: SERTRALINE HCL 50 MG TABLET (FP) PO SCH (10:02)
[2018-01-17] MEDS: oxyCODONE HCL 5 MG TABLET PO PRN ×2 (10:58→21:07)
[2018-01-17] MEDS: ZOLPIDEM TARTRATE 5 MG TABLET PO PRN (21:07)
[2018-01-18] MEDS: METOCLOPRAMIDE HCL INJECTION 10 MG/2 ML VIAL IVPB SCH ×3 (02:18→17:37)
[2018-01-18] MEDS: SODIUM CHLORIDE 1,000 ML IV SCH ×2 (06:58→14:01)
[2018-01-18] MEDS: oxyCODONE HCL 5 MG TABLET PO PRN ×2 (09:03→16:42)
[2018-01-18] MEDS: SERTRALINE HCL 50 MG TABLET (FP) PO SCH (09:03)
[2018-01-18] MEDS: PANTOPRAZOLE SODIUM 40 MG VIAL IVPUSH SCH ×2 (10:00→21:02)
--- NOTE | 2018-01-18 10:12 | PN ---
Progress Note, Physician - Current Medication List Current Medications: Active Medications Acetaminophen (Tylenol -) 650 mg PO Q6HPO PRN PRN Reason: PAIN LEVEL 4 - 6 Diphenhydramine HCl (Benadryl Injection -) 12.5 mg IVPUSH Q4H PRN PRN Reason: FOR ITCHING Sodium Chloride (Normal Saline -) 1,000 mls @ 100 mls/hr IV ASDIR [facility] Stop: 01/19/18 19:14 Last Admin: 01/18/18 06:58 Dose: 100 mls/hr Metoclopramide HCl (Reglan Injection -) 10 mg IVPB Q8H [facility] Last Admin: 01/18/18 02:18 Dose: 10 mg Oxycodone HCl (Roxicodone -) 10 mg PO Q6H PRN PRN Reason: PAIN LEVEL 7 - 10 Last Admin: 01/18/18 09:03 Dose: 10 mg Pantoprazole Sodium (Protonix Iv) 40 mg IVPUSH BID [facility] Last Admin: 01/17/18 21:51 Dose: 40 mg Sertraline HCl (Zoloft -) 50 mg PO DAILY@0800 [facility] Last Admin: 01/18/18 09:03 Dose: 50 mg Zolpidem Tartrate (Ambien -) 5 mg PO HS PRN PRN Reason: INSOMNIA Last Admin: 01/17/18 21:07 Dose: 5 mg - Objective Vital Signs: Vital Signs Temperature 98.0 F 01/18/18 06:00 Pulse Rate 81 01/18/18 06:00 Respiratory Rate 20 01/18/18 06:00 Blood Pressure 120/71 01/18/18 06:00 O2 Sat by Pulse Oximetry (%) 98 01/17/18 21:00 Cardiovascular: Yes: Regular Rate and Rhythm Respiratory: Yes: Regular, CTA Bilaterally Gastrointestinal: Yes: Normal Bowel Sounds, Soft. No: Tenderness Labs: CBC, BMP 01/15/18 07:00 INR, PTT INR 1.10 (0.83-1.09) H 01/12/18 11:30 Problem List - Problems (1) Symptomatic anemia Assessment/Plan: -Symptomatic -c/o dysphagia -Transfused --check prbc -GI and Hem noted -EGD and Colon done--see report--stricture Code(s): D64.9 - ANEMIA, UNSPECIFIED (2) PSA (psoriatic arthritis) Assessment/Plan: -hold otezla -Rheumo noted Code(s): L40.50 - ARTHROPATHIC PSORIASIS, UNSPECIFIED (3) Anxiety Code(s): F41.9 - ANXIETY DISORDER, UNSPECIFIED (4) Chronic back pain Assessment/Plan: -h/o surgery -oxycodone Code(s): M54.9 - DORSALGIA, UNSPECIFIED; G89.29 - OTHER CHRONIC PAIN (5) Esophageal stricture Assessment/Plan: s/p dilation diet per gi Code(s): K22.2 - ESOPHAGEAL OBSTRUCTION
[2018-01-18 11:28] LABS: BASO % 0.7 % (0-2.0); EOS % 1.1 % (0-4.5); HEMATOCRIT 28.4 % (32.4-45.2); HEMOGLOBIN 8.4 GM/dL (10.7-15.3); LYMPH % 30.9 % (8-40); MCHC 29.6 g/dl (32.0-36.0); MEAN CELL VOLUME 61.4 fl (80-96); MEAN PLT VOLUME 8.8 fl (7.5-11.1); NEUT % 55.3 % (42.8-82.8); PLATELET COUNT 286 K/MM3 (134-434); RBC 4.63 M/mm3 (3.60-5.2); RDW 29.7 % (11.6-15.6); WHITE BLOOD COUNT 5.2 K/mm3 (4.0-10.0)
[2018-01-18 11:37] LABS: MCH 18.2 pg (25.7-33.7)
--- NOTE | 2018-01-18 13:15 | PN ---
Progress Note (short form) - Note Progress Note: PROGRESS NOTE FOR HEMATOLOGY/ONCOLOGY Patient seen and examined by me at bedside Patient s/p EGD/Colonoscopy with no complications. Found to have multiple esophageal strictures Biopsy results pending Otherwise, patient denies fever, chills, nausea, vomiting, abdominal pain, chest pain, palpitation, shortness of breath, headaches. Vital Signs Temperature 98.0 F 01/18/18 06:00 Pulse Rate 81 01/18/18 06:00 Respiratory Rate 20 01/18/18 06:00 Blood Pressure 120/71 01/18/18 06:00 O2 Sat by Pulse Oximetry (%) 98 01/17/18 21:00 PHYSICAL EXAMINATION: GENERAL: Awake, alert, no acute distress EYES: PERRL, EOMI. ENT: Moist mucous membranes. No oral thrush LUNGS: CTA Bilaterally. No accessory muscle use. HEART: RRR, normal S1 and S2 ABDOMEN: Soft, nontender, not distended, normoactive bowel sounds EXTREMITIES:No peripheral edema. Laboratory Tests 01/18/18 09:15 01/15/18 07:00 ASSESSMENT AND PLAN: Patient is a 72 year old female who presented for worsening shortness of breath and was found to have symptomatic anemia with a H/H of 6.7/21.2. We were consulted for further evaluation. Problem List: Severe Symptomatic Anemia Microcytic Anemia- Iron deficiency Anemia Psoriatic Arthritis Anxiety attacks Depression chronic back pain PLAN: -Patient with Iron deficiency anemia and is now receiving IV Venofer -EGD/Colonscopy done and patient found to have multiple esophageal strictures. Biopsies pending -Hgb Electrophoresis pending
[2018-01-18 15:01] LABS: ANISOCYTOSIS 2+; MACROCYTOSIS 0; PLATELET ESTIMATE NORMAL; TARGET CELLS 2+
--- NOTE | 2018-01-18 18:49 | PN ---
GI Progress Note - Objective Vital Signs: Vital Signs Temperature 98.3 F 01/18/18 18:00 Pulse Rate 81 01/18/18 18:00 Respiratory Rate 20 01/18/18 18:00 Blood Pressure 123/66 01/18/18 18:00 O2 Sat by Pulse Oximetry (%) 99 01/18/18 09:00 Labs: CBC, BMP 01/18/18 09:15 01/15/18 07:00 INR, PTT INR 1.10 (0.83-1.09) H 01/12/18 11:30 Problem List - Problems (1) History of colonic polyps Code(s): Z86.010 - PERSONAL HISTORY OF COLONIC POLYPS (2) Symptomatic anemia Code(s): D64.9 - ANEMIA, UNSPECIFIED
[2018-01-18] MEDS: ZOLPIDEM TARTRATE 5 MG TABLET PO PRN (21:52)
[2018-01-19] MEDS: METOCLOPRAMIDE HCL INJECTION 10 MG/2 ML VIAL IVPB SCH ×2 (02:15→09:43)
[2018-01-19] MEDS: oxyCODONE HCL 5 MG TABLET PO PRN ×2 (07:08→13:43)
[2018-01-19] MEDS: SERTRALINE HCL 50 MG TABLET (FP) PO SCH (09:42)
[2018-01-19] MEDS: PANTOPRAZOLE SODIUM 40 MG VIAL IVPUSH SCH (09:44)
[2018-01-19] MEDS: SODIUM CHLORIDE 1,000 ML IV SCH (09:44)
[2018-01-19] MEDS ORDERED: IRON SUCROSE INJECTION 300 MG in SODIUM CHLORIDE 235 ML IVPB ONE (13:20)
--- NOTE | 2018-01-19 13:22 | PN ---
Progress Note, Physician Chief Complaint: patient seen and examined biopsy pending s/p EGD got iv iron h/h stable - Current Medication List Current Medications: Active Medications Acetaminophen (Tylenol -) 650 mg PO Q6HPO PRN PRN Reason: PAIN LEVEL 4 - 6 Diphenhydramine HCl (Benadryl Injection -) 12.5 mg IVPUSH Q4H PRN PRN Reason: FOR ITCHING Sodium Chloride (Normal Saline -) 1,000 mls @ 100 mls/hr IV ASDIR [facility] Stop: 01/19/18 19:14 Last Admin: 01/19/18 09:44 Dose: Not Given Metoclopramide HCl (Reglan Injection -) 10 mg IVPB Q8H [facility] Last Admin: 01/19/18 09:43 Dose: 10 mg Oxycodone HCl (Roxicodone -) 10 mg PO Q6H PRN PRN Reason: PAIN LEVEL 7 - 10 Last Admin: 01/19/18 07:08 Dose: 10 mg Pantoprazole Sodium (Protonix Iv) 40 mg IVPUSH BID [facility] Last Admin: 01/19/18 09:44 Dose: 40 mg Sertraline HCl (Zoloft -) 50 mg PO DAILY@0800 [facility] Last Admin: 01/19/18 09:42 Dose: 50 mg Zolpidem Tartrate (Ambien -) 5 mg PO HS PRN PRN Reason: INSOMNIA Last Admin: 01/18/18 21:52 Dose: 5 mg - Objective Vital Signs: Vital Signs Temperature 98.1 F 01/19/18 09:40 Pulse Rate 75 01/19/18 09:40 Respiratory Rate 18 01/19/18 09:40 Blood Pressure 130/81 01/19/18 09:40 O2 Sat by Pulse Oximetry (%) 99 01/18/18 09:00 Constitutional: Yes: Calm Cardiovascular: Yes: Regular Rate and Rhythm, S1, S2 Respiratory: Yes: CTA Bilaterally Gastrointestinal: Yes: Normal Bowel Sounds, Soft Edema: No Neurological: Yes: Alert, Oriented Labs: CBC, BMP 01/18/18 09:15 01/15/18 07:00 INR, PTT INR 1.10 (0.83-1.09) H 01/12/18 11:30 Problem List - Problems (1) Symptomatic anemia Assessment/Plan: s/p egd colonscopy strictures seen biopsy taken h/h stable iron panel noted iv venofer protonix 40mg bid for 3 months heme on board electrophoresis pending Code(s): D64.9 - ANEMIA, UNSPECIFIED (2) PSA (psoriatic arthritis) Assessment/Plan: rheum consult appreciated Code(s): L40.50 - ARTHROPATHIC PSORIASIS, UNSPECIFIED
[2018-01-19] MEDS ORDERED: IRON SUCROSE INJECTION 200 MG in SODIUM CHLORIDE 90 ML IVPB ONE (13:23)
[2018-01-19 13:38] VITALS: BMI 23.2
[2018-01-19] MEDS ORDERED: PT OWN MED DRAWER 7, Y5N ONE (15:18)
--- NOTE | 2018-01-19 15:54 | PATH ---
Surgical Pathology Report Patient Name: DONYA SANTILLAN Med. Rec. #: [id number] /Age/Gender: 1945 (Age: 72) / F Account: [id number] Location: [address] [place] [address]/[facility] Taken: 01/17/2018 Received: 01/17/2018 Reported: 01/19/2018 Physicians: Meir Singh M.D. Specimen(s) Received A: BX MID ESOPHAGUS B: BX PROXIMAL DESCENDING COLON POLYPS Clinical History Anemia Postoperative diagnosis: Multiple small strictures in mid and upper esophagus Final Diagnosis A. MID ESOPHAGUS, BIOPSY: SQUAMOUS MUCOSA WITH BASAL CELL HYPERPLASIA, MARKED ACUTE ESOPHAGITIS AND ASSOCIATED ULCERATION. PAS FUNGAL SPECIAL STAIN IS NEGATIVE. SEE COMMENT. B. PROXIMAL DESCENDING COLON, POLYP, BIOPSY: TUBULAR ADENOMA. Comment: Part A, findings are not diagnostic of eosinophilic esophagitis. Suggest clinical and endoscopic correlation. Electronically Signed Nadia Moe M.D. Gross Description A. Received in formalin, labeled "mid esophagus biopsy" are 2 dominguez, irregular portions of soft tissue measuring 0.2 and 0.5 cm. in greatest dimension. The specimens are submitted in toto in one cassette. B. Received in formalin, labeled "proximal descending colon polyps" are 3 dominguez, irregular portions of soft tissue ranging from 0.2-0.5 cm. in greatest dimension. The specimens are submitted in toto in one cassette. DL/01/17/2018 saudi/01/17/2018
[2018-01-19] MEDS: METOCLOPRAMIDE HCL 10 MG TABLET (FP) PO SCH (16:45)
[2018-01-19] MEDS: PANTOPRAZOLE 40 MG TABLET (FP) PO SCH (22:06)
[2018-01-19] MEDS: ZOLPIDEM TARTRATE 5 MG TABLET PO PRN (22:06)
[2018-01-20] MEDS: oxyCODONE HCL 5 MG TABLET PO PRN ×2 (06:39→13:32)
[2018-01-20] MEDS: METOCLOPRAMIDE HCL 10 MG TABLET (FP) PO SCH ×2 (06:39→11:03)
[2018-01-20] MEDS: PANTOPRAZOLE 40 MG TABLET (FP) PO SCH (09:11)
[2018-01-20] MEDS: SERTRALINE HCL 50 MG TABLET (FP) PO SCH (09:11)
[2018-01-20 09:15] LABS: BASO % 0.5 % (0-2.0); EOS % 2.7 % (0-4.5); HEMATOCRIT 27.4 % (32.4-45.2); HEMOGLOBIN 8.8 GM/dL (10.7-15.3); LYMPH % 42.9 % (8-40); MCHC 31.9 g/dl (32.0-36.0); MEAN CELL VOLUME 61.4 fl (80-96); MEAN PLT VOLUME 9.1 fl (7.5-11.1); MONO % 9.2 % (3.8-10.2); NEUT % 44.7 % (42.8-82.8); PLATELET COUNT 288 K/MM3 (134-434); RBC 4.47 M/mm3 (3.60-5.2); WHITE BLOOD COUNT 4.7 K/mm3 (4.0-10.0)
[2018-01-20 09:16] VITALS: BP 139/77; PULSE 95; TEMP 98.4
[2018-01-20 09:17] LABS: MCH 19.6 pg (25.7-33.7)
--- NOTE | 2018-01-20 11:35 | DS ---
Physical Examination Vital Signs: Vital Signs Temperature 98.4 F 01/20/18 09:16 Pulse Rate 95 H 01/20/18 09:16 Respiratory Rate 18 01/20/18 09:16 Blood Pressure 139/77 01/20/18 09:16 O2 Sat by Pulse Oximetry (%) 97 01/20/18 10:00 Cardiovascular: Yes: S1, S2 Respiratory: Yes: Regular, CTA Bilaterally Gastrointestinal: Yes: Normal Bowel Sounds, Soft. No: Tenderness Labs: CBC, BMP 01/20/18 06:00 01/15/18 07:00 Discharge Summary Reason For Visit: SECONDARY ANEMIA Current Active Problems Esophageal stricture (Acute) History of colonic polyps (Acute) PSA (psoriatic arthritis) (Acute) Shortness of breath (Acute) Symptomatic anemia (Acute) Hospital Course: - Problems (1) Symptomatic anemia Assessment/Plan: s/p egd colonscopy strictures seen biopsy taken h/h stable iron panel noted iv venofer protonix 40mg bid for 3 months heme on board electrophoresis pending Code(s): D64.9 - ANEMIA, UNSPECIFIED (2) PSA (psoriatic arthritis) Assessment/Plan: rheum consult appreciated Code(s): L40.50 - ARTHROPATHIC PSORIASIS, UNSPECIFIED Condition: Improved - Instructions Referrals: Sebastian Puckett MD, MD [Primary Care Provider] - 1 Week Disposition: HOME - Home Medications Comprehensive Discharge Medication List: Ambulatory Orders Sertraline HCl [Zoloft -] 100 mg PO DAILY 10/09/12 Apremilast [Otezla] 50 mg PO BID 11/15/14 Aspirin [ASA -] 81 mg PO DAILY 11/15/14 Oxycodone HCl [Oxycodone HCl ER] 10 mg PO DAILY 03/17/17 Zolpidem Tartrate [Ambien] 5 mg PO HS 01/12/18 Metoclopramide HCl [Reglan -] 10 mg PO TIDAC #90 tablet 01/20/18 Pantoprazole Sodium [Protonix -] 40 mg PO BID #60 tablet.ec 01/20/18
[2018-01-20 15:29] LABS: HGB SOLUBILITY Negative (Negative); Hgb A 74.7 % (96.4-98.8); Hgb C 22.6 % (0.0); Hgb F 0 % (0.0-2.0); Hgb S 0 % (0.0)
== END 2018-01-20 15:07 | disposition home or self-care (01) | DRG 812 ==
LOC: JER 10:04 → JERBED 14:19 → OBSVTOIN 15:01 → J5S 19:57
PROVIDERS: ADMIT Family Medicine; ATTEND Family Medicine
PROC: 30233N1 Transfusion of Nonautologous Red Blood Cells into Peripheral Vein, Percutaneous Approach (ICD-10-PCS; principal; 2018-01-12)
PROC: 0D748ZZ Dilation of Esophagogastric Junction, Via Natural or Artificial Opening Endoscopic (ICD-10-PCS; 2018-01-17)
PROC: 0DD28ZX Extraction of Middle Esophagus, Via Natural or Artificial Opening Endoscopic, Diagnostic (ICD-10-PCS; 2018-01-17)
PROC: 0DBM8ZX Excision of Descending Colon, Via Natural or Artificial Opening Endoscopic, Diagnostic (ICD-10-PCS; 2018-01-17)
DX: D50.8 Other iron deficiency anemias (principal); K22.2 Esophageal obstruction; F14.10 Cocaine abuse, uncomplicated; F12.10 Cannabis abuse, uncomplicated; D12.4 Benign neoplasm of descending colon; Z86.73 Personal history of transient ischemic attack (TIA), and cerebral infarction without residual deficits; F32.9 Major depressive disorder, single episode, unspecified; Z80.0 Family history of malignant neoplasm of digestive organs; Z87.891 Personal history of nicotine dependence; L40.50 Arthropathic psoriasis, unspecified; M54.5 Low back pain; F41.9 Anxiety disorder, unspecified; Z90.710 Acquired absence of both cervix and uterus
CPT/HCPCS: 36415; 36430; 71045-TC-FY; 80053; 82272; 82550; 82607; 82728; 82746; 82747; 82784; 83021; 83540; 83550; 83735; 84100; 84155; 84165; 84439; 84443; 84484; 85014; 85025; 85027; 85379; 85610; 85660; 85730; 86334; 86850; 86900; 86901; 86922; 88305-TC; 93005; 93010; 99283-25; G0378; J1756; J7030; P9038; P9058

== ENCOUNTER 2020-02-22 19:56 | Emergency (ER) | payer OTHER ==
[2020-02-22 20:11] VITALS: BMI 24.2
[2020-02-22] MEDS ORDERED: SODIUM CHLORIDE 0.9% 500 ML INFUS.BAG IV ONE (20:56)
[2020-02-22 22:02] LABS: INR 1.11 (0.83-1.09); PROTHROMBIN TIME (PATIENT) 13.6 SEC (9.7-13.0)
[2020-02-22 22:05] LABS: ACTIVATED PTT 32.1 SECONDS (25.2-36.5)
[2020-02-22 22:09] LABS: VENOUS BASE EXCESS -4.1 mmol/L (-2-2); VENOUS O2 SATURATION 92.3 % (70-80); VENOUS PCO2 37.6 mmHg (38-52); VENOUS PH 7.361 (7.310-7.410)
[2020-02-22 22:13] LABS: BASO % 0.8 % (0-2.0); HEMATOCRIT 38.6 % (32.4-45.2); HEMOGLOBIN 13.1 GM/dL (10.7-15.3); MCH 28.8 pg (25.7-33.7); MEAN CELL VOLUME 84.7 fl (80-96); MEAN PLT VOLUME 11.7 fl (7.5-11.1); MONO % 11.9 % (3.8-10.2); NEUT % 53.3 % (42.8-82.8); PLATELET COUNT 163 K/MM3 (134-434); RBC 4.55 M/mm3 (3.60-5.2); RDW 12.3 % (11.6-15.6)
[2020-02-22 22:15] LABS: CHLORIDE 104 mmol/L (98-107); SODIUM 136 mmol/L (136-145)
[2020-02-22 22:17] LABS: CALCIUM 9.1 mg/dL (8.5-10.1)
[2020-02-22 22:18] LABS: ALBUMIN 3.7 g/dl (3.4-5.0); ANION GAP 9 MMOL/L (8-16); BLOOD UREA NITROGEN 18.2 mg/dL (7-18); CO2 23 mmol/L (21-32); GLUCOSE,RANDOM 86 mg/dL (74-106)
[2020-02-22 22:20] LABS: BILIRUBIN,DIRECT 0.3 mg/dL (0.0-0.2)
[2020-02-22 22:21] LABS: CREATININE 0.9 mg/dL (0.55-1.3); SGOT/AST 29 U/L (15-37); SGPT/ALT 20 U/L (13-61)
[2020-02-22 22:22] LABS: BILIRUBIN,TOTAL 0.7 mg/dL (0.2-1); TOT PROT 7.3 g/dl (6.4-8.2)
[2020-02-22 22:24] LABS: ALK PHOS 65 U/L (45-117); LDH 176 U/L (84-246)
[2020-02-22 22:37] VITALS: BP 132/89; PULSE 89; TEMP 98.7
[2020-02-22 22:53] LABS: EPI CELLS >36 /uL (0-25.1); HYALINE CASTS 10 /uL (0-3.1); URINE APPEARANCE CLEAR; URINE BACTERIA 5618 /uL (0-1359); URINE BILIRUBIN NEGATIVE (NEGATIVE); URINE COLOR YELLOW; URINE GLUCOSE (UA) NEGATIVE (NEGATIVE); URINE KETONE 1+ (NEGATIVE); URINE LEUK ESTERASE TRACE (NEGATIVE); URINE NITRITE POSITIVE (NEGATIVE); URINE PROTEIN 2+ (NEGATIVE); URINE RBC 6 /uL (0-23.9); URINE UROBILINOGEN 0.2 mg/dL (0.2-1.0); URINE WBC 57 /uL (0-25.8)
[2020-02-22] MEDS ORDERED: NITROFURANTOIN MACROCRYSTAL 50 MG CAPSULE (FP) PO ONE (23:30)
[2020-02-22] MEDS ORDERED: NITROFURANTOIN MACROCRYSTAL 50 MG CAPSULE (FP) ONE (23:44)
== END 2020-02-22 23:53 | disposition home or self-care (01) ==
LOC: JER 19:56
DX: U07.1 COVID-19 (principal); R19.7 Diarrhea, unspecified; N30.01 Acute cystitis with hematuria
CPT/HCPCS: 36415; 71045-TC-FY; 80053; 81003; 82248; 82272; 82550; 82553; 82728; 82803; 83540; 83550; 83605; 83615; 84443; 84484; 85025; 85045; 85610; 85730; 86140; 86850; 86900; 86901; 87040; 87086; 87186; 87426; 87804; 93005; 93010; 99285-25

== ENCOUNTER 2020-03-01 13:08 | Inpatient (IN) | payer OTHER ==
[2020-03-01] MEDS ORDERED: ACETAMINOPHEN 1000 MG/100 ML VIAL (NON FORMULARY) IVPB ONE (14:15)
[2020-03-01] MEDS ORDERED: DEXAMETHASONE SOD PHOSPHATE 4 MG/1 ML VIAL IVPUSH ONE (14:15)
[2020-03-01] MEDS ORDERED: SODIUM CHLORIDE 0.9% 500 ML INFUS.BAG IV ONE (14:15)
[2020-03-01] MEDS ORDERED: ACETAMINOPHEN INJECTION 100 ML IVPB ONE (15:08)
[2020-03-01] MEDS ORDERED: DEXAMETHASONE SOD PHOSPHATE 10 MG/1 ML VIAL ONE (15:08)
[2020-03-01 15:16] LABS: BASO % 0.4 % (0-2.0); HEMATOCRIT 35.9 % (32.4-45.2); HEMOGLOBIN 11.9 GM/dL (10.7-15.3); LYMPH % 14.6 % (8-40); MCH 28.2 pg (25.7-33.7); MEAN CELL VOLUME 85.4 fl (80-96); MEAN PLT VOLUME 12.4 fl (7.5-11.1); MONO % 14.8 % (3.8-10.2); NEUT % 70.2 % (42.8-82.8); PLATELET COUNT 204 K/MM3 (134-434); RBC 4.21 M/mm3 (3.60-5.2); RDW 12.2 % (11.6-15.6); WHITE BLOOD COUNT 8.2 K/mm3 (4.0-10.0)
[2020-03-01 15:22] LABS: INR 1.36 (0.83-1.09); PROTHROMBIN TIME (PATIENT) 16.6 SEC (9.7-13.0); VENOUS BASE EXCESS 2.6 mmol/L (-2-2); VENOUS O2 SATURATION 96.7 % (70-80); VENOUS PCO2 42.7 mmHg (38-52); VENOUS PH 7.424 (7.310-7.410)
[2020-03-01 15:25] LABS: ACTIVATED PTT 30.4 SECONDS (25.2-36.5)
[2020-03-01 15:34] LABS: CHLORIDE 100 mmol/L (98-107); POTASSIUM 3.4 mmol/L (3.5-5.1); SODIUM 137 mmol/L (136-145)
[2020-03-01 15:37] LABS: ALBUMIN 3.2 g/dl (3.4-5.0); ANION GAP 11 MMOL/L (8-16); CALCIUM 8.6 mg/dL (8.5-10.1); CO2 27 mmol/L (21-32); GLUCOSE,RANDOM 92 mg/dL (74-106)
[2020-03-01 15:39] LABS: BILIRUBIN,DIRECT 0.5 mg/dL (0.0-0.2); CREATININE 0.7 mg/dL (0.55-1.3); SGOT/AST 71 U/L (15-37); SGPT/ALT 31 U/L (13-61)
[2020-03-01 15:41] LABS: BILIRUBIN,TOTAL 1.3 mg/dL (0.2-1); LDH 985 U/L (84-246)
[2020-03-01 15:43] LABS: ALK PHOS 70 U/L (45-117)
[2020-03-01 17:06] LABS: EPI CELLS >36 /uL (0-25.1); HYALINE CASTS 77 /uL (0-3.1); PH,URINE 5.5 (5.0-8.0); URINE APPEARANCE TURBID; URINE BACTERIA >9,000 /uL (0-1359); URINE BILIRUBIN 2+ (NEGATIVE); URINE COLOR ORANGE; URINE GLUCOSE (UA) NEGATIVE (NEGATIVE); URINE KETONE TRACE (NEGATIVE); URINE LEUK ESTERASE 2+ (NEGATIVE); URINE NITRITE POSITIVE (NEGATIVE); URINE PROTEIN 3+ (NEGATIVE); URINE RBC 7 /uL (0-23.9); URINE WBC 78 /uL (0-25.8)
[2020-03-01] MEDS ORDERED: CIPROFLOXACIN 400 MG/D5W 400 MG/200 ML IVPB IVPB ONE (17:15)
[2020-03-01] MEDS ORDERED: ZOLPIDEM TARTRATE 5 MG TABLET PO PRN (20:40)
[2020-03-01] MEDS ORDERED: POTASSIUM CHLORIDE TABS 20 MEQ TABLET.ER (FP) PO ONE (20:43)
[2020-03-01] MEDS ORDERED: ACETAMINOPHEN 325 MG TABLET (FP) PO PRN (21:00)
[2020-03-01] MEDS ORDERED: POTASSIUM CHLORIDE ORAL LIQUID 20 MEQ/15 ML ONE (21:41)
[2020-03-01 21:58] LABS: MAGNESIUM 1.8 mg/dL (1.8-2.4)
[2020-03-02] MEDS ORDERED: ACETAMINOPHEN 325 MG TABLET (FP) PO PRN (00:58)
[2020-03-02] MEDS ORDERED: DOXYCYCLINE INJECTION 100 MG in DEXTROSE 5%-WATER 100 ML IVPB ONE (01:00)
[2020-03-02 01:23] VITALS: BMI 22.8
[2020-03-02] MEDS ORDERED: DOXYCYCLINE HYCLATE 100 MG VIAL ONE (01:38)
[2020-03-02] MEDS ORDERED: DEXTROSE 5%-WATER 100 ML IVPB ONE (01:38)
[2020-03-02] MEDS: oxyCODONE HCL 5 MG TABLET PO PRN ×2 (01:47→20:57)
[2020-03-02] MEDS: DEXAMETHASONE SOD PHOSPHATE 4 MG/1 ML VIAL IVPUSH SCH (10:31)
[2020-03-02] MEDS: CHOLECALCIFEROL (VIT D3) 1,000 UNIT (25 MCG) TABLET PO SCH (10:36)
[2020-03-02] MEDS: SERTRALINE HCL 50 MG TABLET (FP) PO SCH (10:36)
[2020-03-02] MEDS: ZINC SULFATE 220 MG CAPSULE (FP) PO SCH (10:36)
[2020-03-02] MEDS: ASPIRIN 81 MG CHEWABLE TABLETS PO SCH (10:36)
[2020-03-02] MEDS: ASCORBIC ACID 500 MG TABLET (FP) PO SCH ×2 (10:36→21:00)
[2020-03-02] MEDS: ENOXAPARIN NA (PORCINE) 40 MG/0.4 ML DISP.SYRIN SQ SCH (10:36)
[2020-03-02] MEDS ORDERED: CEFTRIAXONE 1 GM in DEXTROSE 5%-WATER - 50 ML IVPB SCH (11:45)
[2020-03-02] MEDS ORDERED: DEXTROSE 5%-WATER - 50 ML IVPB ONE (12:16)
[2020-03-02] MEDS ORDERED: cefTRIAXone SODIUM 1 GM VIAL ONE (12:16)
[2020-03-02] MEDS ORDERED: REMDESIVIR 200 MG in SODIUM CHLORIDE 210 ML IVPB ONE (13:00)
[2020-03-02] MEDS: SULFAMETHOXAZOLE/TRIMETHOPRIM 800MG/160MG D.S. TABLET PO SCH (21:00)
[2020-03-03] MEDS: ENOXAPARIN NA (PORCINE) 40 MG/0.4 ML DISP.SYRIN SQ SCH (09:35)
[2020-03-03] MEDS: ASPIRIN 81 MG CHEWABLE TABLETS PO SCH (09:36)
[2020-03-03] MEDS: SULFAMETHOXAZOLE/TRIMETHOPRIM 800MG/160MG D.S. TABLET PO SCH ×2 (09:36→21:08)
[2020-03-03] MEDS: ASCORBIC ACID 500 MG TABLET (FP) PO SCH ×2 (09:36→21:08)
[2020-03-03] MEDS: SERTRALINE HCL 50 MG TABLET (FP) PO SCH (09:36)
[2020-03-03] MEDS: oxyCODONE HCL 5 MG TABLET PO PRN ×2 (09:36→21:10)
[2020-03-03] MEDS: CHOLECALCIFEROL (VIT D3) 1,000 UNIT (25 MCG) TABLET PO SCH (09:36)
[2020-03-03] MEDS: ZINC SULFATE 220 MG CAPSULE (FP) PO SCH (09:37)
[2020-03-03] MEDS: DEXAMETHASONE SOD PHOSPHATE 4 MG/1 ML VIAL IVPUSH SCH (09:37)
[2020-03-03] MEDS: REMDESIVIR 100 MG in SODIUM CHLORIDE 230 ML IVPB SCH (13:00)
[2020-03-03 13:08] LABS: POTASSIUM 3.8 mmol/L (3.5-5.1)
[2020-03-03 13:11] LABS: CALCIUM 10.2 mg/dL (8.5-10.1)
[2020-03-03 13:12] LABS: ALBUMIN 3.5 g/dl (3.4-5.0); BLOOD UREA NITROGEN 16.3 mg/dL (7-18); MAGNESIUM 1.8 mg/dL (1.8-2.4)
[2020-03-03 13:15] LABS: CREATININE 0.8 mg/dL (0.55-1.3); PHOSPHOROUS 1.7 mg/dL (2.5-4.9)
[2020-03-03 13:16] LABS: BILIRUBIN,TOTAL 1.1 mg/dL (0.2-1); TOT PROT 7.5 g/dl (6.4-8.2)
[2020-03-03 13:46] LABS: BASO % 0.2 % (0-2.0); HEMATOCRIT 38.3 % (32.4-45.2); HEMOGLOBIN 12.4 GM/dL (10.7-15.3); LYMPH % 5.4 % (8-40); MCH 27.7 pg (25.7-33.7); MCHC 32.4 g/dl (32.0-36.0); MEAN CELL VOLUME 85.5 fl (80-96); MEAN PLT VOLUME 11.6 fl (7.5-11.1); MONO % 8.6 % (3.8-10.2); NEUT % 85.8 % (42.8-82.8); PLATELET COUNT 323 K/MM3 (134-434); RBC 4.48 M/mm3 (3.60-5.2); RDW 12.2 % (11.6-15.6); WHITE BLOOD COUNT 15.4 K/mm3 (4.0-10.0)
[2020-03-03] MEDS ORDERED: oxyCODONE HCL 5 MG TABLET PO ONE (14:43)
[2020-03-03] MEDS: FAMOTIDINE 20 MG/50 ML IVPB 20 MG/50 ML MG IVPB SCH (21:08)
[2020-03-04] MEDS: DEXAMETHASONE SOD PHOSPHATE 4 MG/1 ML VIAL IVPUSH SCH (09:20)
[2020-03-04] MEDS: SULFAMETHOXAZOLE/TRIMETHOPRIM 800MG/160MG D.S. TABLET PO SCH ×2 (09:20→21:09)
[2020-03-04] MEDS: ENOXAPARIN NA (PORCINE) 40 MG/0.4 ML DISP.SYRIN SQ SCH (09:20)
[2020-03-04] MEDS: ASCORBIC ACID 500 MG TABLET (FP) PO SCH ×2 (09:20→21:09)
[2020-03-04] MEDS: ZINC SULFATE 220 MG CAPSULE (FP) PO SCH (09:20)
[2020-03-04] MEDS: CHOLECALCIFEROL (VIT D3) 1,000 UNIT (25 MCG) TABLET PO SCH (09:20)
[2020-03-04] MEDS: oxyCODONE HCL 5 MG TABLET PO PRN ×3 (09:21→21:10)
[2020-03-04] MEDS: SERTRALINE HCL 50 MG TABLET (FP) PO SCH (09:21)
[2020-03-04] MEDS: ASPIRIN 81 MG CHEWABLE TABLETS PO SCH (09:21)
[2020-03-04] MEDS: FAMOTIDINE 20 MG/50 ML IVPB 20 MG/50 ML MG IVPB SCH ×2 (09:28→21:10)
[2020-03-04 09:48] LABS: BASO % 0.4 % (0-2.0); HEMATOCRIT 36.3 % (32.4-45.2); HEMOGLOBIN 11.9 GM/dL (10.7-15.3); LYMPH % 12.5 % (8-40); MCH 27.8 pg (25.7-33.7); MCHC 32.7 g/dl (32.0-36.0); MEAN CELL VOLUME 84.8 fl (80-96); MEAN PLT VOLUME 11.1 fl (7.5-11.1); MONO % 9.3 % (3.8-10.2); NEUT % 77.8 % (42.8-82.8); PLATELET COUNT 352 K/MM3 (134-434); RBC 4.28 M/mm3 (3.60-5.2); RDW 12.3 % (11.6-15.6)
[2020-03-04 10:25] LABS: POTASSIUM 3.9 mmol/L (3.5-5.1)
[2020-03-04 10:33] LABS: BLOOD UREA NITROGEN 18.2 mg/dL (7-18); CALCIUM 9.1 mg/dL (8.5-10.1)
[2020-03-04 10:34] LABS: ALBUMIN 3.1 g/dl (3.4-5.0); MAGNESIUM 1.9 mg/dL (1.8-2.4)
[2020-03-04 10:37] LABS: CREATININE 0.8 mg/dL (0.55-1.3); PHOSPHOROUS 2.9 mg/dL (2.5-4.9)
[2020-03-04] MEDS: REMDESIVIR 100 MG in SODIUM CHLORIDE 230 ML IVPB SCH (12:38)
[2020-03-05] MEDS: oxyCODONE HCL 5 MG TABLET PO PRN ×2 (05:54→22:34)
[2020-03-05 09:18] LABS: EOS % 0.3 % (0-4.5); HEMATOCRIT 36.3 % (32.4-45.2); HEMOGLOBIN 12.1 GM/dL (10.7-15.3); MCH 28.3 pg (25.7-33.7); MCHC 33.2 g/dl (32.0-36.0); MEAN CELL VOLUME 85.1 fl (80-96); MEAN PLT VOLUME 10.9 fl (7.5-11.1); MONO % 9.7 % (3.8-10.2); PLATELET COUNT 333 K/MM3 (134-434); RBC 4.26 M/mm3 (3.60-5.2); RDW 12.5 % (11.6-15.6); WHITE BLOOD COUNT 12.7 K/mm3 (4.0-10.0)
[2020-03-05 09:31] LABS: POTASSIUM 3.9 mmol/L (3.5-5.1)
[2020-03-05 09:37] LABS: CALCIUM 9.1 mg/dL (8.5-10.1)
[2020-03-05 09:38] LABS: BLOOD UREA NITROGEN 16.3 mg/dL (7-18); MAGNESIUM 2.1 mg/dL (1.8-2.4)
[2020-03-05 09:41] LABS: CREATININE 0.8 mg/dL (0.55-1.3); PHOSPHOROUS 2.2 mg/dL (2.5-4.9); TOT PROT 7.1 g/dl (6.4-8.2)
[2020-03-05] MEDS ORDERED: ACETAMINOPHEN 325 MG TABLET (FP) PO PRN (10:25)
[2020-03-05] MEDS: SULFAMETHOXAZOLE/TRIMETHOPRIM 800MG/160MG D.S. TABLET PO SCH ×2 (10:52→22:15)
[2020-03-05] MEDS: ASCORBIC ACID 500 MG TABLET (FP) PO SCH ×2 (10:52→22:15)
[2020-03-05] MEDS: ZINC SULFATE 220 MG CAPSULE (FP) PO SCH (10:52)
[2020-03-05] MEDS: DEXAMETHASONE SOD PHOSPHATE 4 MG/1 ML VIAL IVPUSH SCH (10:55)
[2020-03-05] MEDS: SERTRALINE HCL 50 MG TABLET (FP) PO SCH (11:22)
[2020-03-05] MEDS: ASPIRIN 81 MG CHEWABLE TABLETS PO SCH (11:23)
[2020-03-05] MEDS: CHOLECALCIFEROL (VIT D3) 1,000 UNIT (25 MCG) TABLET PO SCH (11:23)
[2020-03-05] MEDS: FAMOTIDINE 20 MG/50 ML IVPB 20 MG/50 ML MG IVPB SCH ×2 (11:23→22:15)
[2020-03-05] MEDS: LEFLUNOMIDE 10 MG TABLET PO SCH (11:23)
[2020-03-05] MEDS: guaiFENesin 600 MG TABLET.ER (FP) PO SCH ×2 (14:48→22:15)
[2020-03-05] MEDS: REMDESIVIR 100 MG in SODIUM CHLORIDE 230 ML IVPB SCH (15:01)
[2020-03-05] MEDS: APIXABAN 5 MG TABLET PO SCH (22:15)
[2020-03-06] MEDS: oxyCODONE HCL 5 MG TABLET PO PRN ×2 (06:03→13:29)
[2020-03-06 08:59] LABS: BASO % 0.2 % (0-2.0); EOS % 0.3 % (0-4.5); HEMATOCRIT 33.9 % (32.4-45.2); HEMOGLOBIN 11.2 GM/dL (10.7-15.3); LYMPH % 6.5 % (8-40); MEAN CELL VOLUME 85.1 fl (80-96); MEAN PLT VOLUME 10.6 fl (7.5-11.1); MONO % 9.1 % (3.8-10.2); NEUT % 83.9 % (42.8-82.8); PLATELET COUNT 292 K/MM3 (134-434); RBC 3.98 M/mm3 (3.60-5.2); RDW 12.4 % (11.6-15.6); WHITE BLOOD COUNT 13.5 K/mm3 (4.0-10.0)
[2020-03-06] MEDS: DEXAMETHASONE SOD PHOSPHATE 4 MG/1 ML VIAL IVPUSH SCH (10:38)
[2020-03-06] MEDS: FAMOTIDINE 20 MG/50 ML IVPB 20 MG/50 ML MG IVPB SCH ×2 (10:38→22:16)
[2020-03-06] MEDS: ASPIRIN 81 MG CHEWABLE TABLETS PO SCH (10:50)
[2020-03-06] MEDS: guaiFENesin 600 MG TABLET.ER (FP) PO SCH ×2 (10:51→22:16)
[2020-03-06] MEDS: APIXABAN 5 MG TABLET PO SCH ×2 (10:51→22:16)
[2020-03-06] MEDS: CHOLECALCIFEROL (VIT D3) 1,000 UNIT (25 MCG) TABLET PO SCH (10:51)
[2020-03-06] MEDS: ASCORBIC ACID 500 MG TABLET (FP) PO SCH ×2 (10:51→22:16)
[2020-03-06] MEDS: SERTRALINE HCL 50 MG TABLET (FP) PO SCH (10:51)
[2020-03-06] MEDS: ZINC SULFATE 220 MG CAPSULE (FP) PO SCH (10:51)
[2020-03-06] MEDS: SULFAMETHOXAZOLE/TRIMETHOPRIM 800MG/160MG D.S. TABLET PO SCH ×2 (10:51→22:16)
[2020-03-06] MEDS ORDERED: MELATONIN 5 MG TABLETS PO PRN (12:39)
[2020-03-06] MEDS: REMDESIVIR 100 MG in SODIUM CHLORIDE 230 ML IVPB SCH (13:32)
[2020-03-06] MEDS: DOCUSATE SODIUM 100 MG CAPSULE (FP) PO SCH ×2 (13:32→22:16)
[2020-03-06] MEDS: POLYETHYLENE GLYCOL 3350 119 GM BTL PO SCH ×2 (13:32→22:16)
[2020-03-06] MEDS ORDERED: ZOLPIDEM TARTRATE 5 MG TABLET PO PRN (22:00)
[2020-03-07] MEDS: oxyCODONE HCL 5 MG TABLET PO PRN ×3 (05:10→18:04)
[2020-03-07] MEDS ORDERED: PT OWN MED DRAWER 7, Y5N ONE (10:50)
[2020-03-07] MEDS: ZINC SULFATE 220 MG CAPSULE (FP) PO SCH (11:54)
[2020-03-07] MEDS: APIXABAN 5 MG TABLET PO SCH (11:54)
[2020-03-07] MEDS: ASPIRIN 81 MG CHEWABLE TABLETS PO SCH (11:54)
[2020-03-07] MEDS: guaiFENesin 600 MG TABLET.ER (FP) PO SCH ×2 (11:55→20:59)
[2020-03-07] MEDS: SERTRALINE HCL 50 MG TABLET (FP) PO SCH (11:55)
[2020-03-07] MEDS: SULFAMETHOXAZOLE/TRIMETHOPRIM 800MG/160MG D.S. TABLET PO SCH ×2 (11:55→21:00)
[2020-03-07] MEDS: ASCORBIC ACID 500 MG TABLET (FP) PO SCH ×2 (11:55→20:59)
[2020-03-07] MEDS: CHOLECALCIFEROL (VIT D3) 1,000 UNIT (25 MCG) TABLET PO SCH (11:55)
[2020-03-07] MEDS: FAMOTIDINE 20 MG/50 ML IVPB 20 MG/50 ML MG IVPB SCH ×2 (11:56→22:20)
[2020-03-07] MEDS: DOCUSATE SODIUM 100 MG CAPSULE (FP) PO SCH ×3 (11:57→21:00)
[2020-03-07] MEDS: POLYETHYLENE GLYCOL 3350 119 GM BTL PO SCH ×2 (11:57→21:01)
[2020-03-07] MEDS: DEXAMETHASONE SOD PHOSPHATE 4 MG/1 ML VIAL IVPUSH SCH ×2 (11:57→12:34)
[2020-03-07] MEDS: LEFLUNOMIDE 10 MG TABLET PO SCH (11:58)
[2020-03-07] MEDS ORDERED: ENOXAPARIN NA (PORCINE) 60 MG/0.6 ML DISP.SYRIN SQ SCH (18:00)
[2020-03-08] MEDS ORDERED: ZOLPIDEM TARTRATE 5 MG TABLET PO PRN (02:08)
[2020-03-08] MEDS ORDERED: ACETAMINOPHEN 325 MG TABLET (FP) PO PRN (02:08)
[2020-03-08] MEDS: ENOXAPARIN NA (PORCINE) 60 MG/0.6 ML DISP.SYRIN SQ SCH ×2 (06:06→17:24)
[2020-03-08] MEDS: FAMOTIDINE 20 MG/50 ML IVPB 20 MG/50 ML MG IVPB SCH ×2 (09:11→21:03)
[2020-03-08] MEDS: DEXAMETHASONE SOD PHOSPHATE 4 MG/1 ML VIAL IVPUSH SCH (09:11)
[2020-03-08] MEDS: ASPIRIN 81 MG CHEWABLE TABLETS PO SCH (09:14)
[2020-03-08] MEDS: guaiFENesin 600 MG TABLET.ER (FP) PO SCH ×2 (09:14→21:03)
[2020-03-08] MEDS: SULFAMETHOXAZOLE/TRIMETHOPRIM 800MG/160MG D.S. TABLET PO SCH ×2 (09:14→21:03)
[2020-03-08] MEDS: CHOLECALCIFEROL (VIT D3) 1,000 UNIT (25 MCG) TABLET PO SCH (09:14)
[2020-03-08] MEDS: ASCORBIC ACID 500 MG TABLET (FP) PO SCH ×2 (09:14→21:03)
[2020-03-08] MEDS: DOCUSATE SODIUM 100 MG CAPSULE (FP) PO SCH ×3 (09:15→21:04)
[2020-03-08] MEDS: SERTRALINE HCL 50 MG TABLET (FP) PO SCH (09:15)
[2020-03-08] MEDS: ZINC SULFATE 220 MG CAPSULE (FP) PO SCH (09:15)
[2020-03-08] MEDS: oxyCODONE HCL 5 MG TABLET PO PRN ×2 (09:24→16:17)
[2020-03-08] MEDS ORDERED: PATIENT'S OWN MEDICATION (NON-FORMULARY) (Apremilast [Otezla] 30 MG) PO SCH (10:00)
[2020-03-08 10:13] LABS: ALBUMIN 2.6 g/dl (3.4-5.0); BLOOD UREA NITROGEN 15.1 mg/dL (7-18); CALCIUM 9.6 mg/dL (8.5-10.1)
[2020-03-08 10:17] LABS: BILIRUBIN,TOTAL 1.1 mg/dL (0.2-1); CREATININE 0.6 mg/dL (0.55-1.3); TOT PROT 6.8 g/dl (6.4-8.2)
[2020-03-08] MEDS: POLYETHYLENE GLYCOL 3350 119 GM BTL PO SCH ×2 (12:00→21:04)
[2020-03-08] MEDS ORDERED: MORPHINE SULFATE 2 MG/ML VIAL IVPUSH ONE (15:02)
[2020-03-08] MEDS: MELATONIN 5 MG TABLETS PO PRN (21:09)
[2020-03-09] MEDS: oxyCODONE HCL 5 MG TABLET PO PRN ×3 (01:00→19:52)
[2020-03-09] MEDS ORDERED: LORazepam 2 MG/ML SDV VIAL IVPUSH ONE (04:54)
[2020-03-09] MEDS: ENOXAPARIN NA (PORCINE) 60 MG/0.6 ML DISP.SYRIN SQ SCH ×2 (06:10→18:50)
[2020-03-09] MEDS: POLYETHYLENE GLYCOL 3350 119 GM BTL PO SCH ×2 (10:00→22:30)
[2020-03-09] MEDS: ASPIRIN 81 MG CHEWABLE TABLETS PO SCH (10:13)
[2020-03-09] MEDS: ZINC SULFATE 220 MG CAPSULE (FP) PO SCH (10:13)
[2020-03-09] MEDS: SERTRALINE HCL 50 MG TABLET (FP) PO SCH (10:13)
[2020-03-09] MEDS: CHOLECALCIFEROL (VIT D3) 1,000 UNIT (25 MCG) TABLET PO SCH (10:14)
[2020-03-09] MEDS: FAMOTIDINE 20 MG/50 ML IVPB 20 MG/50 ML MG IVPB SCH ×2 (10:14→21:36)
[2020-03-09] MEDS: ASCORBIC ACID 500 MG TABLET (FP) PO SCH ×2 (10:14→21:36)
[2020-03-09] MEDS: DEXAMETHASONE SOD PHOSPHATE 4 MG/1 ML VIAL IVPUSH SCH (10:14)
[2020-03-09] MEDS: guaiFENesin 600 MG TABLET.ER (FP) PO SCH ×2 (10:14→21:36)
[2020-03-09] MEDS: DOCUSATE SODIUM 100 MG CAPSULE (FP) PO SCH ×2 (10:15→22:30)
[2020-03-09] MEDS: SULFAMETHOXAZOLE/TRIMETHOPRIM 800MG/160MG D.S. TABLET PO SCH ×2 (10:15→21:36)
[2020-03-09] MEDS: LORazepam 1 MG TABLET PO PRN ×2 (12:56→21:36)
[2020-03-09 21:07] LABS: BASO % 0.4 % (0-2.0); HEMATOCRIT 35.7 % (32.4-45.2); HEMOGLOBIN 11.4 GM/dL (10.7-15.3); LYMPH % 4.1 % (8-40); MCHC 31.8 g/dl (32.0-36.0); MEAN PLT VOLUME 11.2 fl (7.5-11.1); MONO % 6.7 % (3.8-10.2); NEUT % 88.8 % (42.8-82.8); RDW 13.1 % (11.6-15.6); WHITE BLOOD COUNT 16.2 K/mm3 (4.0-10.0)
[2020-03-09 21:23] LABS: POTASSIUM 4.4 mmol/L (3.5-5.1)
[2020-03-09 21:29] LABS: CALCIUM 9.2 mg/dL (8.5-10.1)
[2020-03-09 21:30] LABS: ALBUMIN 2.6 g/dl (3.4-5.0); BLOOD UREA NITROGEN 18.1 mg/dL (7-18)
[2020-03-09 21:33] LABS: CREATININE 0.8 mg/dL (0.55-1.3)
[2020-03-09 21:34] LABS: BILIRUBIN,TOTAL 0.9 mg/dL (0.2-1); TOT PROT 7.2 g/dl (6.4-8.2)
[2020-03-09 21:46] LABS: PLATELET COUNT 327 K/MM3 (134-434); PLATELET ESTIMATE ADEQUATE
[2020-03-10] MEDS: ENOXAPARIN NA (PORCINE) 60 MG/0.6 ML DISP.SYRIN SQ SCH ×3 (06:05→17:15)
[2020-03-10] MEDS: oxyCODONE HCL 5 MG TABLET PO PRN ×3 (06:15→22:25)
[2020-03-10] MEDS ORDERED: PT OWN MED DRAWER 7, Y5N ONE (08:35)
[2020-03-10] MEDS: PATIENT'S OWN MEDICATION (NON-FORMULARY) (Apremilast [Otezla] 30 MG Tablet) PO SCH (09:14)
[2020-03-10] MEDS: LEFLUNOMIDE 10 MG TABLET PO SCH (09:37)
[2020-03-10] MEDS: CHOLECALCIFEROL (VIT D3) 1,000 UNIT (25 MCG) TABLET PO SCH (09:38)
[2020-03-10] MEDS: ASCORBIC ACID 500 MG TABLET (FP) PO SCH ×2 (09:38→22:25)
[2020-03-10] MEDS: ZINC SULFATE 220 MG CAPSULE (FP) PO SCH (09:38)
[2020-03-10] MEDS: DEXAMETHASONE SOD PHOSPHATE 4 MG/1 ML VIAL IVPUSH SCH (09:38)
[2020-03-10] MEDS: LORazepam 1 MG TABLET PO PRN ×2 (09:38→22:25)
[2020-03-10] MEDS: ASPIRIN 81 MG CHEWABLE TABLETS PO SCH (09:38)
[2020-03-10] MEDS: FAMOTIDINE 20 MG/50 ML IVPB 20 MG/50 ML MG IVPB SCH ×2 (09:39→22:26)
[2020-03-10] MEDS: guaiFENesin 600 MG TABLET.ER (FP) PO SCH ×2 (09:39→22:25)
[2020-03-10] MEDS: SERTRALINE HCL 50 MG TABLET (FP) PO SCH (09:39)
[2020-03-10] MEDS: SULFAMETHOXAZOLE/TRIMETHOPRIM 800MG/160MG D.S. TABLET PO SCH (09:39)
[2020-03-10 09:58] LABS: BASO % 0.5 % (0-2.0); EOS % 0.3 % (0-4.5); HEMATOCRIT 36.5 % (32.4-45.2); HEMOGLOBIN 11.6 GM/dL (10.7-15.3); MCH 27.2 pg (25.7-33.7); MCHC 31.9 g/dl (32.0-36.0); MEAN CELL VOLUME 85.3 fl (80-96); MEAN PLT VOLUME 11.3 fl (7.5-11.1); MONO % 8.2 % (3.8-10.2); PLATELET COUNT 335 K/MM3 (134-434); RBC 4.28 M/mm3 (3.60-5.2)
[2020-03-10] MEDS: DOCUSATE SODIUM 100 MG CAPSULE (FP) PO SCH ×2 (10:10→22:48)
[2020-03-10] MEDS: POLYETHYLENE GLYCOL 3350 119 GM BTL PO SCH ×2 (10:10→22:48)
[2020-03-10 10:30] LABS: POTASSIUM 4.5 mmol/L (3.5-5.1)
[2020-03-10 10:34] LABS: ALBUMIN 2.7 g/dl (3.4-5.0)
[2020-03-10 10:35] LABS: CALCIUM 9.5 mg/dL (8.5-10.1); MAGNESIUM 2.3 mg/dL (1.8-2.4)
[2020-03-10 10:36] LABS: BLOOD UREA NITROGEN 19.4 mg/dL (7-18)
[2020-03-10 10:37] LABS: CREATININE 0.7 mg/dL (0.55-1.3); PHOSPHOROUS 2.9 mg/dL (2.5-4.9)
[2020-03-10 10:38] LABS: TOT PROT 7.2 g/dl (6.4-8.2)
[2020-03-10 10:56] LABS: BILIRUBIN,TOTAL 1.2 mg/dL (0.2-1)
[2020-03-11] MEDS: ENOXAPARIN NA (PORCINE) 60 MG/0.6 ML DISP.SYRIN SQ SCH ×2 (06:39→17:47)
[2020-03-11 07:12] LABS: BASO % 0.1 % (0-2.0); EOS % 0.1 % (0-4.5); HEMATOCRIT 36.7 % (32.4-45.2); LYMPH % 6.7 % (8-40); MCH 27.9 pg (25.7-33.7); MCHC 32.7 g/dl (32.0-36.0); MEAN CELL VOLUME 85.3 fl (80-96); MONO % 8.7 % (3.8-10.2); NEUT % 84.4 % (42.8-82.8); PLATELET COUNT 312 K/MM3 (134-434); RBC 4.31 M/mm3 (3.60-5.2); RDW 12.8 % (11.6-15.6)
[2020-03-11 07:33] LABS: POTASSIUM 4.4 mmol/L (3.5-5.1)
[2020-03-11 07:36] LABS: ALBUMIN 2.7 g/dl (3.4-5.0); BLOOD UREA NITROGEN 20.5 mg/dL (7-18); CALCIUM 9.5 mg/dL (8.5-10.1)
[2020-03-11 07:37] LABS: MAGNESIUM 2.3 mg/dL (1.8-2.4)
[2020-03-11 07:39] LABS: CREATININE 0.7 mg/dL (0.55-1.3)
[2020-03-11 07:40] LABS: PHOSPHOROUS 2.4 mg/dL (2.5-4.9)
[2020-03-11 07:41] LABS: TOT PROT 7.3 g/dl (6.4-8.2)
[2020-03-11 08:53] LABS: ANISOCYTOSIS 1+; MACROCYTOSIS 1+; PLATELET ESTIMATE NORMAL
[2020-03-11] MEDS: LORazepam 1 MG TABLET PO PRN ×2 (09:20→21:40)
[2020-03-11] MEDS: POLYETHYLENE GLYCOL 3350 119 GM BTL PO SCH ×2 (10:24→21:43)
[2020-03-11] MEDS: DOCUSATE SODIUM 100 MG CAPSULE (FP) PO SCH ×2 (10:24→22:33)
[2020-03-11] MEDS: ZINC SULFATE 220 MG CAPSULE (FP) PO SCH (10:35)
[2020-03-11] MEDS: ASPIRIN 81 MG CHEWABLE TABLETS PO SCH (10:35)
[2020-03-11] MEDS: ASCORBIC ACID 500 MG TABLET (FP) PO SCH ×2 (10:35→21:41)
[2020-03-11] MEDS: guaiFENesin 600 MG TABLET.ER (FP) PO SCH ×2 (10:35→21:41)
[2020-03-11] MEDS: FAMOTIDINE 20 MG/50 ML IVPB 20 MG/50 ML MG IVPB SCH ×2 (10:35→21:42)
[2020-03-11] MEDS: DEXAMETHASONE SOD PHOSPHATE 4 MG/1 ML VIAL IVPUSH SCH (10:35)
[2020-03-11] MEDS: CHOLECALCIFEROL (VIT D3) 1,000 UNIT (25 MCG) TABLET PO SCH (10:35)
[2020-03-11] MEDS: SERTRALINE HCL 50 MG TABLET (FP) PO SCH (10:36)
[2020-03-11] MEDS: oxyCODONE HCL 5 MG TABLET PO PRN ×2 (15:49→21:40)
[2020-03-11] MEDS: NAPH,MB-DB/K PH,MBDB POWDER PACKET PO SCH ×2 (15:50→21:41)
[2020-03-11] MEDS: MELATONIN 5 MG TABLETS PO PRN (21:41)
[2020-03-12] MEDS: ENOXAPARIN NA (PORCINE) 60 MG/0.6 ML DISP.SYRIN SQ SCH ×2 (05:14→19:25)
[2020-03-12 07:41] LABS: BASO % 0.3 % (0-2.0); EOS % 0.6 % (0-4.5); HEMATOCRIT 37.2 % (32.4-45.2); HEMOGLOBIN 12.2 GM/dL (10.7-15.3); LYMPH % 4.9 % (8-40); MCH 27.8 pg (25.7-33.7); MCHC 32.7 g/dl (32.0-36.0); MEAN CELL VOLUME 84.8 fl (80-96); MEAN PLT VOLUME 11.1 fl (7.5-11.1); MONO % 6.7 % (3.8-10.2); NEUT % 87.5 % (42.8-82.8); PLATELET COUNT 327 K/MM3 (134-434); RBC 4.38 M/mm3 (3.60-5.2); RDW 13.3 % (11.6-15.6)
[2020-03-12 08:25] LABS: POTASSIUM 4.9 mmol/L (3.5-5.1)
[2020-03-12 08:33] LABS: ALBUMIN 2.7 g/dl (3.4-5.0); CALCIUM 9.6 mg/dL (8.5-10.1); CREATININE 0.8 mg/dL (0.55-1.3)
[2020-03-12 08:34] LABS: BILIRUBIN,TOTAL 0.9 mg/dL (0.2-1); BLOOD UREA NITROGEN 35.7 mg/dL (7-18); MAGNESIUM 2.7 mg/dL (1.8-2.4); TOT PROT 7.2 g/dl (6.4-8.2)
[2020-03-12 08:36] LABS: PHOSPHOROUS 4.6 mg/dL (2.5-4.9)
[2020-03-12] MEDS: LORazepam 1 MG TABLET PO PRN ×2 (08:53→22:00)
[2020-03-12] MEDS: ZINC SULFATE 220 MG CAPSULE (FP) PO SCH (09:00)
[2020-03-12] MEDS: guaiFENesin 600 MG TABLET.ER (FP) PO SCH ×2 (09:00→22:31)
[2020-03-12] MEDS: ASCORBIC ACID 500 MG TABLET (FP) PO SCH ×2 (09:00→22:31)
[2020-03-12] MEDS: ASPIRIN 81 MG CHEWABLE TABLETS PO SCH (09:00)
[2020-03-12] MEDS: SERTRALINE HCL 50 MG TABLET (FP) PO SCH (09:00)
[2020-03-12] MEDS: POLYETHYLENE GLYCOL 3350 119 GM BTL PO SCH ×2 (09:01→22:30)
[2020-03-12] MEDS: DEXAMETHASONE SOD PHOSPHATE 4 MG/1 ML VIAL IVPUSH SCH (09:01)
[2020-03-12] MEDS: DOCUSATE SODIUM 100 MG CAPSULE (FP) PO SCH ×2 (09:01→22:30)
[2020-03-12] MEDS: FAMOTIDINE 20 MG/50 ML IVPB 20 MG/50 ML MG IVPB SCH (09:01)
[2020-03-12] MEDS: CHOLECALCIFEROL (VIT D3) 1,000 UNIT (25 MCG) TABLET PO SCH (09:01)
[2020-03-12 09:25] LABS: ANISOCYTOSIS 0; MACROCYTOSIS 0; PLATELET ESTIMATE NORMAL
[2020-03-12] MEDS ORDERED: PT OWN MED DRAWER 7, Y5N ONE (10:31)
[2020-03-12] MEDS: LEFLUNOMIDE 10 MG TABLET PO SCH (10:38)
[2020-03-12] MEDS: NAPH,MB-DB/K PH,MBDB POWDER PACKET PO SCH ×2 (10:38→22:31)
[2020-03-12] MEDS: oxyCODONE HCL 5 MG TABLET PO PRN (21:54)
[2020-03-12] MEDS: FAMOTIDINE 20 MG TABLET PO SCH (22:31)
[2020-03-12] MEDS: MELATONIN 5 MG TABLETS PO PRN (23:40)
[2020-03-13] MEDS: oxyCODONE HCL 5 MG TABLET PO PRN ×3 (03:57→17:37)
[2020-03-13] MEDS: ENOXAPARIN NA (PORCINE) 60 MG/0.6 ML DISP.SYRIN SQ SCH ×2 (05:50→17:40)
[2020-03-13 07:23] LABS: HEMATOCRIT 38.6 % (32.4-45.2); HEMOGLOBIN 12.7 GM/dL (10.7-15.3); MCH 28.3 pg (25.7-33.7); MEAN CELL VOLUME 85.9 fl (80-96); MEAN PLT VOLUME 10.8 fl (7.5-11.1); PLATELET COUNT 295 K/MM3 (134-434); RDW 13.2 % (11.6-15.6); WHITE BLOOD COUNT 22.8 K/mm3 (4.0-10.0)
[2020-03-13] MEDS: DOCUSATE SODIUM 100 MG CAPSULE (FP) PO SCH ×2 (09:05→22:03)
[2020-03-13] MEDS: ASCORBIC ACID 500 MG TABLET (FP) PO SCH ×2 (09:30→22:04)
[2020-03-13] MEDS: ASPIRIN 81 MG CHEWABLE TABLETS PO SCH (09:30)
[2020-03-13] MEDS: CHOLECALCIFEROL (VIT D3) 1,000 UNIT (25 MCG) TABLET PO SCH (09:30)
[2020-03-13] MEDS: guaiFENesin 600 MG TABLET.ER (FP) PO SCH ×2 (09:30→22:04)
[2020-03-13] MEDS: ZINC SULFATE 220 MG CAPSULE (FP) PO SCH (09:31)
[2020-03-13] MEDS: FAMOTIDINE 20 MG TABLET PO SCH ×2 (09:31→22:04)
[2020-03-13] MEDS: SERTRALINE HCL 50 MG TABLET (FP) PO SCH (09:31)
[2020-03-13] MEDS: POLYETHYLENE GLYCOL 3350 119 GM BTL PO SCH ×2 (09:32→22:03)
[2020-03-13] MEDS: DEXAMETHASONE SOD PHOSPHATE 10 MG/1 ML VIAL IVPUSH SCH (09:32)
[2020-03-13] MEDS: LORazepam 1 MG TABLET PO PRN ×2 (10:07→22:04)
[2020-03-13] MEDS: MELATONIN 5 MG TABLETS PO PRN (22:07)
[2020-03-14] MEDS: ENOXAPARIN NA (PORCINE) 60 MG/0.6 ML DISP.SYRIN SQ SCH ×2 (05:20→18:12)
[2020-03-14 07:30] LABS: HEMATOCRIT 39.4 % (32.4-45.2); HEMOGLOBIN 13.1 GM/dL (10.7-15.3); MCH 28.5 pg (25.7-33.7); MCHC 33.1 g/dl (32.0-36.0); MEAN CELL VOLUME 85.9 fl (80-96); MEAN PLT VOLUME 11.2 fl (7.5-11.1); PLATELET COUNT 319 K/MM3 (134-434); RBC 4.59 M/mm3 (3.60-5.2); RDW 13.5 % (11.6-15.6); WHITE BLOOD COUNT 21.9 K/mm3 (4.0-10.0)
[2020-03-14 07:34] LABS: POTASSIUM 4.4 mmol/L (3.5-5.1)
[2020-03-14 07:37] LABS: ALBUMIN 2.8 g/dl (3.4-5.0); BLOOD UREA NITROGEN 34.8 mg/dL (7-18); MAGNESIUM 2.4 mg/dL (1.8-2.4)
[2020-03-14 07:40] LABS: CREATININE 0.7 mg/dL (0.55-1.3)
[2020-03-14 07:41] LABS: PHOSPHOROUS 2.8 mg/dL (2.5-4.9)
[2020-03-14 07:42] LABS: BILIRUBIN,TOTAL 0.7 mg/dL (0.2-1); TOT PROT 7.6 g/dl (6.4-8.2)
[2020-03-14] MEDS: LORazepam 1 MG TABLET PO PRN (08:11)
[2020-03-14] MEDS: ASPIRIN 81 MG CHEWABLE TABLETS PO SCH (10:00)
[2020-03-14] MEDS: ZINC SULFATE 220 MG CAPSULE (FP) PO SCH ×2 (10:00→12:48)
[2020-03-14] MEDS: LEFLUNOMIDE 10 MG TABLET PO SCH (10:00)
[2020-03-14] MEDS: guaiFENesin 600 MG TABLET.ER (FP) PO SCH ×3 (10:00→21:23)
[2020-03-14] MEDS: ASCORBIC ACID 500 MG TABLET (FP) PO SCH ×3 (10:00→21:08)
[2020-03-14] MEDS: CHOLECALCIFEROL (VIT D3) 1,000 UNIT (25 MCG) TABLET PO SCH ×2 (10:01→12:48)
[2020-03-14] MEDS: DEXAMETHASONE SOD PHOSPHATE 10 MG/1 ML VIAL IVPUSH SCH (10:01)
[2020-03-14] MEDS: SERTRALINE HCL 50 MG TABLET (FP) PO SCH (10:01)
[2020-03-14] MEDS ORDERED: ZOLPIDEM TARTRATE 5 MG TABLET PO PRN (10:07)
[2020-03-14] MEDS ORDERED: LORazepam 1 MG TABLET PO PRN (10:07)
[2020-03-14] MEDS: FAMOTIDINE 20 MG TABLET PO SCH ×3 (10:41→21:14)
[2020-03-14] MEDS: DOCUSATE SODIUM 100 MG CAPSULE (FP) PO SCH ×2 (10:41→21:23)
[2020-03-14] MEDS: POLYETHYLENE GLYCOL 3350 119 GM BTL PO SCH ×2 (10:41→21:16)
[2020-03-14] MEDS: oxyCODONE HCL 5 MG TABLET PO PRN (21:15)
[2020-03-14] MEDS: MELATONIN 5 MG TABLETS PO PRN (21:15)
[2020-03-15 07:37] LABS: HEMATOCRIT 39.5 % (32.4-45.2); HEMOGLOBIN 13.1 GM/dL (10.7-15.3); MCH 28.5 pg (25.7-33.7); MCHC 33.1 g/dl (32.0-36.0); MEAN CELL VOLUME 85.9 fl (80-96); MEAN PLT VOLUME 11.4 fl (7.5-11.1); PLATELET COUNT 324 K/MM3 (134-434); RDW 13.3 % (11.6-15.6); WHITE BLOOD COUNT 21.6 K/mm3 (4.0-10.0)
[2020-03-15 07:57] LABS: POTASSIUM 4.8 mmol/L (3.5-5.1)
[2020-03-15 08:04] LABS: CALCIUM 10.7 mg/dL (8.5-10.1)
[2020-03-15 08:05] LABS: ALBUMIN 2.8 g/dl (3.4-5.0); BLOOD UREA NITROGEN 41.8 mg/dL (7-18)
[2020-03-15 08:06] LABS: MAGNESIUM 2.6 mg/dL (1.8-2.4)
[2020-03-15 08:08] LABS: CREATININE 0.7 mg/dL (0.55-1.3)
[2020-03-15 08:09] LABS: BILIRUBIN,TOTAL 1.1 mg/dL (0.2-1)
[2020-03-15 08:10] LABS: TOT PROT 7.7 g/dl (6.4-8.2)
[2020-03-15 08:11] LABS: PHOSPHOROUS 3.6 mg/dL (2.5-4.9)
[2020-03-15] MEDS: DOCUSATE SODIUM 100 MG CAPSULE (FP) PO SCH ×2 (10:27→22:45)
[2020-03-15] MEDS: POLYETHYLENE GLYCOL 3350 119 GM BTL PO SCH ×2 (10:29→22:29)
[2020-03-15] MEDS: guaiFENesin 600 MG TABLET.ER (FP) PO SCH ×2 (10:30→22:46)
[2020-03-15] MEDS: ZINC SULFATE 220 MG CAPSULE (FP) PO SCH (10:31)
[2020-03-15] MEDS: LORazepam 1 MG TABLET PO SCH ×2 (10:33→15:25)
[2020-03-15] MEDS: ASPIRIN 81 MG CHEWABLE TABLETS PO SCH (10:33)
[2020-03-15] MEDS: CHOLECALCIFEROL (VIT D3) 1,000 UNIT (25 MCG) TABLET PO SCH (10:34)
[2020-03-15] MEDS: FAMOTIDINE 20 MG TABLET PO SCH ×2 (10:34→22:29)
[2020-03-15] MEDS: ASCORBIC ACID 500 MG TABLET (FP) PO SCH ×2 (10:34→22:29)
[2020-03-15] MEDS ORDERED: PT OWN MED DRAWER 7, Y5N ONE (10:37)
[2020-03-15] MEDS: DEXAMETHASONE SOD PHOSPHATE 10 MG/1 ML VIAL IVPUSH SCH (10:38)
[2020-03-15] MEDS: ENOXAPARIN NA (PORCINE) 60 MG/0.6 ML DISP.SYRIN SQ SCH ×2 (10:38→22:29)
[2020-03-15] MEDS: SERTRALINE HCL 50 MG TABLET (FP) PO SCH (11:01)
[2020-03-15] MEDS ORDERED: LISINOPRIL 10 MG TABLET PO ONE (20:28)
[2020-03-15] MEDS: oxyCODONE HCL 5 MG TABLET PO PRN (22:27)
[2020-03-16] MEDS: oxyCODONE HCL 5 MG TABLET PO PRN ×2 (05:52→23:03)
[2020-03-16 08:32] LABS: BASO % 0.3 % (0-2.0); EOS % 0.1 % (0-4.5); HEMATOCRIT 41.9 % (32.4-45.2); HEMOGLOBIN 13.4 GM/dL (10.7-15.3); LYMPH % 4.6 % (8-40); MCH 27.9 pg (25.7-33.7); MEAN CELL VOLUME 87.1 fl (80-96); MEAN PLT VOLUME 11.9 fl (7.5-11.1); MONO % 7.9 % (3.8-10.2); NEUT % 87.1 % (42.8-82.8); PLATELET COUNT 319 K/MM3 (134-434); RBC 4.81 M/mm3 (3.60-5.2); RDW 13.7 % (11.6-15.6); WHITE BLOOD COUNT 19.1 K/mm3 (4.0-10.0)
[2020-03-16 09:01] LABS: POTASSIUM 4.4 mmol/L (3.5-5.1)
[2020-03-16 09:04] LABS: ALBUMIN 2.8 g/dl (3.4-5.0); CALCIUM 10.6 mg/dL (8.5-10.1)
[2020-03-16 09:05] LABS: BLOOD UREA NITROGEN 48.5 mg/dL (7-18); MAGNESIUM 2.8 mg/dL (1.8-2.4)
[2020-03-16 09:08] LABS: CREATININE 0.8 mg/dL (0.55-1.3)
[2020-03-16 09:09] LABS: PHOSPHOROUS 3.8 mg/dL (2.5-4.9)
[2020-03-16 09:10] LABS: BILIRUBIN,TOTAL 0.6 mg/dL (0.2-1); TOT PROT 7.8 g/dl (6.4-8.2)
[2020-03-16] MEDS: DOCUSATE SODIUM 100 MG CAPSULE (FP) PO SCH ×2 (09:58→23:05)
[2020-03-16] MEDS: ASCORBIC ACID 500 MG TABLET (FP) PO SCH ×2 (09:58→23:03)
[2020-03-16] MEDS: LORazepam 1 MG TABLET PO SCH ×2 (09:58→16:53)
[2020-03-16] MEDS: ASPIRIN 81 MG CHEWABLE TABLETS PO SCH (09:58)
[2020-03-16] MEDS: DEXAMETHASONE SOD PHOSPHATE 10 MG/1 ML VIAL IVPUSH SCH (09:59)
[2020-03-16] MEDS: ENOXAPARIN NA (PORCINE) 60 MG/0.6 ML DISP.SYRIN SQ SCH ×2 (09:59→23:05)
[2020-03-16] MEDS: ZINC SULFATE 220 MG CAPSULE (FP) PO SCH (10:00)
[2020-03-16] MEDS: guaiFENesin 600 MG TABLET.ER (FP) PO SCH ×2 (10:00→23:03)
[2020-03-16] MEDS: FAMOTIDINE 20 MG TABLET PO SCH ×2 (10:00→23:05)
[2020-03-16] MEDS: CHOLECALCIFEROL (VIT D3) 1,000 UNIT (25 MCG) TABLET PO SCH (10:00)
[2020-03-16] MEDS: SERTRALINE HCL 50 MG TABLET (FP) PO SCH (10:01)
[2020-03-16] MEDS: POLYETHYLENE GLYCOL 3350 119 GM BTL PO SCH ×2 (10:01→23:05)
[2020-03-16] MEDS: MELATONIN 5 MG TABLETS PO PRN (23:03)
[2020-03-17 07:03] LABS: BASO % 0.3 % (0-2.0); HEMATOCRIT 43.6 % (32.4-45.2); LYMPH % 4.8 % (8-40); MCH 28.1 pg (25.7-33.7); MCHC 32.2 g/dl (32.0-36.0); MEAN CELL VOLUME 87.3 fl (80-96); MEAN PLT VOLUME 11.9 fl (7.5-11.1); MONO % 7.6 % (3.8-10.2); NEUT % 87.3 % (42.8-82.8); PLATELET COUNT 299 K/MM3 (134-434); RDW 14.5 % (11.6-15.6); WHITE BLOOD COUNT 20.1 K/mm3 (4.0-10.0)
[2020-03-17 07:21] LABS: POTASSIUM 4.5 mmol/L (3.5-5.1)
[2020-03-17 07:23] LABS: BLOOD UREA NITROGEN 66.2 mg/dL (7-18); CALCIUM 10.9 mg/dL (8.5-10.1)
[2020-03-17 07:27] LABS: PHOSPHOROUS 4.4 mg/dL (2.5-4.9)
[2020-03-17 07:28] LABS: BILIRUBIN,TOTAL 0.7 mg/dL (0.2-1); TOT PROT 7.9 g/dl (6.4-8.2)
[2020-03-17] MEDS ORDERED: DEXAMETHASONE SOD PHOSPHATE 4 MG/1 ML VIAL IVPUSH SCH ×2 (07:34→17:21)
[2020-03-17] MEDS ORDERED: LORazepam 2 MG/ML SDV VIAL IVPUSH ONE (08:38)
[2020-03-17 09:57] LABS: ANISOCYTOSIS 2+; MACROCYTOSIS 1+; PLATELET ESTIMATE NORMAL
[2020-03-17] MEDS: ENOXAPARIN NA (PORCINE) 60 MG/0.6 ML DISP.SYRIN SQ SCH (10:36)
[2020-03-17] MEDS: ASPIRIN 81 MG CHEWABLE TABLETS PO SCH (10:37)
[2020-03-17] MEDS: POLYETHYLENE GLYCOL 3350 119 GM BTL PO SCH (10:38)
[2020-03-17] MEDS: LEFLUNOMIDE 10 MG TABLET PO SCH (10:38)
[2020-03-17] MEDS: guaiFENesin 600 MG TABLET.ER (FP) PO SCH (10:38)
[2020-03-17] MEDS: DOCUSATE SODIUM 100 MG CAPSULE (FP) PO SCH (10:38)
[2020-03-17] MEDS: ZINC SULFATE 220 MG CAPSULE (FP) PO SCH (10:38)
[2020-03-17] MEDS: LORazepam 1 MG TABLET PO SCH (10:38)
[2020-03-17] MEDS: FAMOTIDINE 20 MG TABLET PO SCH (10:38)
[2020-03-17] MEDS: SERTRALINE HCL 50 MG TABLET (FP) PO SCH (10:39)
[2020-03-17] MEDS: ASCORBIC ACID 500 MG TABLET (FP) PO SCH (10:39)
[2020-03-17] MEDS: CHOLECALCIFEROL (VIT D3) 1,000 UNIT (25 MCG) TABLET PO SCH (10:39)
[2020-03-17] MEDS ORDERED: morphine SULFATE 4 MG/ML VIAL IVPUSH ONE (11:21)
[2020-03-17] MEDS ORDERED: MORPHINE SULFATE 2 MG/ML VIAL IVPUSH PRN (12:03)
[2020-03-17] MEDS: morphine SULFATE 4 MG/ML VIAL IVPUSH PRN ×2 (12:38→15:28)
[2020-03-17 14:38] VITALS: BP 100/50
[2020-03-17 15:57] VITALS: TEMP 99.5
[2020-03-17] MEDS ORDERED: SODIUM CHLORIDE 1,000 ML IV STA (16:14)
[2020-03-17 17:12] VITALS: PULSE 0
== END 2020-03-17 16:35 | disposition expired | DRG 177 ==
LOC: JER 13:08 → JERBED 17:06 → J6S 23:54 → J4S 03-07 22:05 → JICU-6 03-17 11:21
PROVIDERS: ADMIT Internal Medicine; ATTEND Internal Medicine
PROC: XW13325 Transfusion of Convalescent Plasma (Nonautologous) into Peripheral Vein, Percutaneous Approach, New Technology Group 5 (ICD-10-PCS; principal; 2020-03-02)
PROC: XW033E5 Introduction of Remdesivir Anti-infective into Peripheral Vein, Percutaneous Approach, New Technology Group 5 (ICD-10-PCS; 2020-03-02)
DX: U07.1 COVID-19 (principal); J96.01 Acute respiratory failure with hypoxia; J12.82 Pneumonia due to coronavirus disease 2019; N39.0 Urinary tract infection, site not specified; I46.9 Cardiac arrest, cause unspecified; F41.9 Anxiety disorder, unspecified; F32.9 Major depressive disorder, single episode, unspecified; D64.9 Anemia, unspecified; B96.20 Unspecified Escherichia coli [E. coli] as the cause of diseases classified elsewhere; K22.2 Esophageal obstruction; L40.50 Arthropathic psoriasis, unspecified; M54.5 Low back pain
CPT/HCPCS: 36415; 36430; 71045-TC-FY; 80053; 81003; 82248; 82550; 82553; 82728; 82803; 82962; 83605; 83615; 83735; 84100; 84484; 85025; 85027; 85379; 85610; 85730; 86140; 86850; 86900; 86901; 87040; 87086; 87186; 87426; 87804; 93005; 93010; 94660; 97116-GP; 97162-GP; 99285-25; C9399; J0131; J1100; P9017